=== PATIENT | male | born 1935 | race Caucasian/White ===

== ENCOUNTER → 2018-02-27 09:58 | Outpatient (CLI) | payer BC, SELFPAY ==
[2018-02-27 10:40] LABS: Add Manual Diff / Slide Review NO; Basophils Absolute Auto 100 /uL (0-100); Basophils Percent Auto 1.1 % (0-2); Eosinophils Absolute Auto 100 /uL (0-450); Eosinophils Percent Auto 2.3 % (2-4); Hemoglobin 15.3 g/dL (13.5-17.5); Lymphocytes Absolute Auto 2200 /uL (1100-4500); Mean Corpuscular HGB Conc 33.2 % (30-36); Mean Corpuscular Hemoglobin 29.7 PG (26-34); Mean Corpuscular Volume 89.4 fL (80-100); Monocytes Absolute Auto 300 /uL (0-900); Monocytes Percent Auto 5.5 % (3-14); Neutrophils Absolute Auto 3000 /uL (1500-7000); Neutrophils Percent Auto 52.1 % (50-75); Platelet Count 303 X10^3/uL (150-400); Red Blood Cell Count 5.15 X10^6/uL (4.5-5.9); Red Cell Distribution Width 13.2 % (11.6-14.8); White Blood Cell Count 5.7 X10^3/uL (4.5-11.0)
[2018-02-27 11:06] LABS: Creatinine Urine Random 89.1 mg/dL
[2018-02-27 11:12] LABS: Microalbumi Creatinin Ratio Ur 6.7 ug/mg CR (<30); Microalbumin Urine Random < 0.6 mg/dL (0-1.6)
[2018-02-27 11:15] LABS: Alanine Aminotransferase 42 IU/L (21-72); Albumin Globulin Ratio 1.5 (1.0-2.8); Alkaline Phosphatase 72 U/L (38-126); Aspartate Aminotransferase 23 IU/L (17-59); BUN Creatinine Ratio 14.4 (6-22); Bilirubin Total 0.5 mg/dL (0.2-1.3); Blood Urea Nitrogen 13 mg/dL (9-20); Calcium 9.9 mg/dL (8.4-10.2); Carbon Dioxide 28 mmol/L (22-32); Chloride 105 mmol/L (98-107); Cholesterol 186 mg/dL (140-199); Estimated Glomerular Filt Rate > 60.0 mL/min (>60); Globulin 2.7 g/dL (1.7-4.1); Glucose 99 mg/dL (80-110); HDL Cholesterol 52 mg/dL (40-60); HEMOLYSIS < 15 (0-50); LDL Cholesterol Calculated 116 mg/dL (<100); Potassium 4.6 mmol/L (3.4-5.1); Sodium 140 mmol/L (137-145); Total Protein 6.7 g/dL (6.3-8.2); Triglycerides 88 mg/dL (35-150)
[2018-02-27 11:35] LABS: Thyroid Stimulating Hormone 1.88 uIU/mL (0.47-4.68)
== END ==
PROVIDERS: PCP Family Medicine; Visit Provider Family Medicine
DX: E78.5 Hyperlipidemia, unspecified (principal); I10 Essential (primary) hypertension; Z85.46 Personal history of malignant neoplasm of prostate
CPT/HCPCS: 36415; 80053; 80061; 82043; 82570; 84443; 85025; G0103

== ENCOUNTER → 2019-10-03 11:50 | Outpatient (CLI) | payer BC, SELFPAY ==
--- NOTE | 2019-10-03 11:51 | DI.RAD.S_ITS ---
PROCEDURE: XR SHOULDER LT MIN 2V INDICATIONS: L shoulder pain x 6 days TECHNIQUE: 3 views of the shoulder were acquired. COMPARISON: [facility], CHEST 2 VIEW, 05/29/2009, 11:35. [facility], CHEST 2 VIEW, 03/30/2007, 12:48. [facility], CHEST 2 VIEW, 08/03/2006, 8:40. [facility], CHEST 2 VIEW, 07/07/2006, 11:53. [facility], RIBS UNILATERAL WITH PA CXR, 04/13/2013, 7:52. [facility], RIBS UNILATERAL WITH PA CXR, 02/20/2013, 8:03. FINDINGS: Bones: No fractures or dislocations. There is a potentially suspicious bony lesion within the medullary space of the proximal humerus. No comparison plain films allow visualization of this same area completely, but at the upper margin of the humeral metadiaphyseal junction on 2 of the prior chest plain films from 2006 and 2007 the uppermost tip of this area of chondroid matrix sclerosis can be seen. Visualized ribs appear intact. Soft tissues: No suspicious soft tissue calcifications. 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 As noted, a very small portion of the upper tip of this abnormality can be seen on 2 prior chest plain films, from 2006 and 2007. 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 The pain syndrome currently on going is important to correlate clinically, especially if trauma to the shoulder causes the most recent symptomatology. Regardless, a follow-up in 6 months is recommended by plain films, but if unusual symptomatology is associated MR scanning with contrast would be recommended at this time. The likelihood of malignancy is considered low. Dictated by: Mike Mosley M.D. on 10/03/2019 at 12:20 Approved by: Mike Mosley M.D. on 10/03/2019 at 12:26
== END ==
PROVIDERS: Family Provider Family Medicine; PCP Family Medicine; Referring Provider Family Medicine; Visit Provider Registered Nurse Diabetes Educator
DX: M25.512 Pain in left shoulder (principal); D48.7 Neoplasm of uncertain behavior of other specified sites
CPT/HCPCS: 73030

== ENCOUNTER → 2019-11-26 10:19 | Outpatient (CLI) | payer BC, SELFPAY ==
[2019-11-26 11:12] LABS: Add Manual Diff / Slide Review NO; Basophils Absolute Auto 0 /uL (0-100); Basophils Percent Auto 0.8 % (0-2); Eosinophils Absolute Auto 100 /uL (0-450); Eosinophils Percent Auto 2.1 % (2-4); Hemoglobin 14.5 g/dL (13.5-17.5); Lymphocytes Absolute Auto 1600 /uL (1100-4500); Lymphocytes Percent Auto 32.8 % (25-40); Mean Corpuscular HGB Conc 33.7 % (30-36); Mean Corpuscular Hemoglobin 30.3 PG (26-34); Mean Corpuscular Volume 89.7 fL (80-100); Monocytes Absolute Auto 300 /uL (0-900); Monocytes Percent Auto 6.5 % (3-14); Neutrophils Absolute Auto 2900 /uL (1500-7000); Neutrophils Percent Auto 57.8 % (50-75); Platelet Count 250 X10^3/uL (150-400); Red Cell Distribution Width 13.8 % (11.6-14.8)
[2019-11-26 11:25] LABS: Alanine Aminotransferase 23 IU/L (<50); Albumin Globulin Ratio 1.3 (1.0-2.8); Alkaline Phosphatase 77 U/L (38-126); Aspartate Aminotransferase 28 IU/L (17-59); BUN Creatinine Ratio 15.2 (6-22); Bilirubin Total 0.7 mg/dL (0.2-1.3); Blood Urea Nitrogen 12 mg/dL (9-20); Calcium 9.7 mg/dL (8.4-10.2); Carbon Dioxide 35 mmol/L (22-32); Chloride 105 mmol/L (98-107); Cholesterol 166 mg/dL (140-199); Estimated Glomerular Filt Rate > 60.0 mL/min (>60); Glucose 98 mg/dL (80-110); HDL Cholesterol 44 mg/dL (40-60); HEMOLYSIS < 15 (0-50); LDL Cholesterol Calculated 95 mg/dL (<100); Potassium 4.6 mmol/L (3.4-5.1); Sodium 141 mmol/L (137-145); Triglycerides 134 mg/dL (35-150)
[2019-11-26 11:54] LABS: Prostate Specific Antigen Scrn 0.364 ng/mL (0.1-4.0)
[2019-11-26 11:55] LABS: Thyroid Stimulating Hormone 1.58 uIU/mL (0.47-4.68)
== END ==
PROVIDERS: Family Provider Family Medicine; PCP Family Medicine; Referring Provider Family Medicine; Visit Provider Family Medicine
DX: C61 Malignant neoplasm of prostate (principal); E78.5 Hyperlipidemia, unspecified; I10 Essential (primary) hypertension; Z13.29 Encounter for screening for other suspected endocrine disorder
CPT/HCPCS: 36415; 80053; 80061; 84443; 85025; G0103

== ENCOUNTER → 2020-07-10 08:34 | Outpatient (CLI) | payer BC, SELFPAY ==
[2020-07-10 09:21] LABS: COVID19 -Nasal RAPID Negative (Negative)
== END ==
PROVIDERS: Family Provider Family Medicine; PCP Internal Medicine; Visit Provider Specialist
DX: Z20.822 Contact with and (suspected) exposure to COVID-19 (principal)
CPT/HCPCS: 87635; C9803

== ENCOUNTER 2020-07-14 06:25 | Day surgery (SDC) | payer BC, SELFPAY ==
[2020-07-10 08:41] VITALS: BMI 26.2
[2020-07-14 07:01] VITALS: BP 159/82; PULSE 64; RESP 15; TEMP 36.4; O2SAT 97; BMI 26.7
[2020-07-14 07:07] LABS: COVID19 -Nasal RAPID Negative (Negative)
[2020-07-14] MEDS: LACTATED RINGERS 1,000 ML 42 ML IV (07:11)
--- NOTE | 2020-07-14 07:46 | PM.PREOP ---
Pre-operative Note Interval Note History & Physical reviewed/Exam performed by Physician: Yes Changes to H&P: No
[2020-07-14] MEDS: CEFAZOLIN 1 GM VIAL 2 GM IV (08:01)
[2020-07-14] MEDS: BELLADONNA/OPIUM SUPPOSITORIES 1 EACH PR (08:12)
--- NOTE | 2020-07-14 08:15 | SUR.OPER ---
Lithotomy on padded OR bed, head on pillow, arms secured on padded arm boards at <90 degrees abduction. Legs secured in padded yellow fins stirrups.
--- NOTE | 2020-07-14 08:25 | PM.OP.1 ---
Operative Date/Time/Diagnoses Date of procedure: 07/14/20 Time of procedure: 08:25 Pre-op diagnosis: Membranous urethral stricture Post-op diagnosis: same Procedure & Clinicians Procedure: 1. Cystoscopy and dilation membranous urethral stricture. Same procedure as scheduled: Yes Indications: 1. Membranous urethral stricture. 2. Lower urinary tract symptoms. Surgeon: Simeon Mota Click Yes if Unassisted: Yes Anesthesia Type: General Operative Notes Findings: 1. Penile urethra-normal caliber. 2. Bulbar urethra-distal segment has a wide annular stricture easily negotiated with a 22 Indonesian panendoscope. 3. Membranous urethra-stenotic and somewhat hypovascular. The external sphincter appears coapted when visualized retrograde from the bulbar segment. 4. Prostate-status post TURP with mild, nonobstructing regrowth. 5. Bladder-1 to 2+ trabeculation. Normal ureteral orifices bilaterally. No visual evidence of stone, foreign body, diverticula, or tumor. Closure Type: not applicable Specimen(s): none sent Applied: catheter (Twenty Indonesian silicone Romero catheter.) Estimated Blood Loss (mL): 0 Procedure in detail: The patient was positioned in supine and administered general anesthesia. He was then repositioned semi-lithotomy the lower abdomen, groin, and genitalia were prepped and draped in sterile fashion. A 22 Indonesian panendoscope was then passed lower urinary tract with the findings as described above. A 0.35 hybrid guidewire was then advanced through the working port of the scope and advanced through the aperture of the membranous urethra under direct visualization. The panendoscope was then backloaded off the wire. Serpentine a [place] tip dilators were then utilized beginning at 12 Indonesian. The panendoscope was then front loaded on the wire and advanced proximally. The membranous segment remained somewhat fixed but the scope with gentle pressure was advanced through the segment and then proximally with the findings as described above. The sheath of the panendoscope was then used to gently fulcrum anteriorly posteriorly and laterally. Panendoscope and wire were then removed. A 20 Indonesian silicone catheter was then advanced lower urinary tract, the balloon filled to 10 cc, and the catheter was placed to gravity drainage. The patient was then repositioned in supine, awakened, and transferred recovery in stable condition. Complications: none Post-operative Condition: stable Disposition: PACU Plan for aftercare: Discharge home
[2020-07-14 08:30] VITALS: BP 124/68; PULSE 67; RESP 10; TEMP 36.4; O2SAT 95
[2020-07-14 08:35] VITALS: BP 128/89; PULSE 67; RESP 13; O2SAT 97
[2020-07-14 08:40] VITALS: BP 126/67; PULSE 67; RESP 17; O2SAT 98
[2020-07-14 09:07] VITALS: BP 134/69; PULSE 55; RESP 14; TEMP 35.7; O2SAT 99
== END 2020-07-14 09:42 | disposition home or self-care (01) ==
PROVIDERS: Family Provider Family Medicine; PCP Internal Medicine; Referring Provider Internal Medicine; Visit Provider Specialist
PROC: 0TJB8ZZ Inspection of Bladder, Via Natural or Artificial Opening Endoscopic (ICD-10-PCS; CPT 52000; principal; 2020-07-14 07:45)
DX: N35.912 Unspecified bulbous urethral stricture, male (principal); N40.1 Benign prostatic hyperplasia with lower urinary tract symptoms; N39.498 Other specified urinary incontinence; K21.9 Gastro-esophageal reflux disease without esophagitis; Z86.73 Personal history of transient ischemic attack (TIA), and cerebral infarction without residual deficits; Z20.822 Contact with and (suspected) exposure to COVID-19
CPT/HCPCS: 52281; 82962; 87635; J0690; J1100; J2405; J2704; J3010

== ENCOUNTER → 2022-10-07 16:23 | Outpatient (CLI) | payer BC, SELFPAY ==
[2022-10-07 19:35] LABS: Creatinine Urine Random 81.6 mg/dL
[2022-10-07 19:49] LABS: Microalbumin Urine Random < 0.6 mg/dL (0-1.6)
== END ==
PROVIDERS: Family Provider Family Medicine; PCP Internal Medicine; Visit Provider Internal Medicine
DX: I10 Essential (primary) hypertension (principal)
CPT/HCPCS: 82043; 82570

== ENCOUNTER → 2022-10-07 16:29 | Outpatient (CLI) | payer BC, SELFPAY ==
--- NOTE | 2022-10-07 16:31 | DI.RAD.S_ITS ---
PROCEDURE: XR KNEE LT 3V INDICATIONS: l knee pain TECHNIQUE: 3 views of the knee were acquired. COMPARISON: None. FINDINGS: Bones: No fractures or dislocations. No suspicious bony lesions. Moderate medial compartment joint space narrowing. Moderate patellofemoral joint space narrowing Soft tissues: Small joint effusion and patellar enthesophyte. IMPRESSION: Moderate osteoarthritis and small joint effusion Approved by: Bebo Rangel M.D. on 10/07/2022 at 17:16
== END ==
PROVIDERS: Family Provider Family Medicine; PCP Internal Medicine; Referring Provider Internal Medicine; Visit Provider Internal Medicine
DX: M17.12 Unilateral primary osteoarthritis, left knee (principal); M25.462 Effusion, left knee; M25.562 Pain in left knee; I10 Essential (primary) hypertension
CPT/HCPCS: 73562; 82043; 82570

== ENCOUNTER → 2023-01-13 08:21 | Outpatient (CLI) | payer BC, SELFPAY ==
[2023-01-13 09:24] LABS: Add Manual Diff / Slide Review NO; Basophils Absolute Auto 100 /uL (0-100); Eosinophils Absolute Auto 100 /uL (0-450); Eosinophils Percent Auto 1.8 % (2-4); Hemoglobin 14.1 g/dL (13.5-17.5); Lymphocytes Absolute Auto 2600 /uL (1100-4500); Lymphocytes Percent Auto 41.9 % (25-40); Mean Corpuscular HGB Conc 33.5 % (30-36); Mean Corpuscular Hemoglobin 29.5 PG (26-34); Mean Corpuscular Volume 88.3 fL (80-100); Monocytes Absolute Auto 300 /uL (0-900); Monocytes Percent Auto 5.1 % (3-14); Neutrophils Absolute Auto 3100 /uL (1500-7000); Neutrophils Percent Auto 50.2 % (50-75); Platelet Count 256 X10^3/uL (150-400); Red Blood Cell Count 4.76 X10^6/uL (4.5-5.9); White Blood Cell Count 6.3 X10^3/uL (4.5-11.0)
[2023-01-13 09:27] LABS: Hemoglobin A1C% w Est Avg Glu 5.3 % (4.0-6.0)
[2023-01-13 09:28] LABS: Albumin 3.7 g/dL (3.5-5.0); BUN Creatinine Ratio 23.1 (6-22); Blood Urea Nitrogen 18 mg/dL (9-20); Calcium 10.3 mg/dL (8.4-10.2); Carbon Dioxide 29 mmol/L (22-32); Chloride 105 mmol/L (98-107); Estimated Glomerular Filt Rate > 60 mL/min (>60); Glucose 100 mg/dL (80-110); HEMOLYSIS < 15 (0-50); Potassium 4.7 mmol/L (3.4-5.1); Sodium 138 mmol/L (137-145)
[2023-01-13 09:38] LABS: Prealbumin 22.6 mg/dL (17.6-36.0)
[2023-01-13 09:43] LABS: Vitamin D 25 Hydroxy (D3) 42.9 ng/mL (30.0-100.0)
== END ==
PROVIDERS: Family Provider Family Medicine; PCP Internal Medicine; Referring Provider Orthopaedic Surgery Adult Reconstructive Orthopaedic Surgery; Visit Provider Orthopaedic Surgery Adult Reconstructive Orthopaedic Surgery
DX: Z01.818 Encounter for other preprocedural examination (principal); R77.0 Abnormality of albumin; E55.9 Vitamin D deficiency, unspecified; Z01.812 Encounter for preprocedural laboratory examination; R73.9 Hyperglycemia, unspecified
CPT/HCPCS: 36415; 80048; 82040; 82306; 83036; 84134; 85025; 93005; 93010

== ENCOUNTER 2023-02-16 09:20 | Day surgery (SDC) | payer BC, SELFPAY ==
[2023-02-07 17:50] VITALS: BP 120/59; PULSE 62; RESP 16; TEMP 36.6; O2SAT 99
[2023-02-08 12:24] VITALS: BMI 26.3
[2023-02-16] VITALS (8 sets, daily range): BP systolic 96–150; BP diastolic 49–81; PULSE 62–71; RESP 11–18; TEMP 36.1–36.8; O2SAT 94–99; BMI 26.3
--- NOTE | 2023-02-16 06:00 | DI.RAD.S_ITS ---
PROCEDURE: XR KNEE LT 1TO2V INDICATIONS: TKA TECHNIQUE: 2 view(s) of the knee acquired. COMPARISON: None. FINDINGS: Bones: Patient is status post knee joint arthroplasty. Hardware components are in expected positions. Visualized bony structures are intact. Soft tissues: Overlying postoperative changes are noted. IMPRESSION: Expected post-operative appearance of a knee arthroplasty. Dictated by: Danyel Starks M.D. on 02/16/2023 at 14:06 Approved by: Danyel Starks M.D. on 02/16/2023 at 14:06
--- NOTE | 2023-02-16 10:12 | PM.PREOP ---
Pre-operative Note Interval Note History & Physical reviewed/Exam performed by Physician: Yes Changes to H&P: No
[2023-02-16] MEDS: ACETAMINOPHEN 325 MG TABLET 975 MG PO (10:18)
[2023-02-16] MEDS: LACTATED RINGERS 1,000 ML 42 ML IV (10:18)
[2023-02-16] MEDS: MELOXICAM 7.5 MG TABLET PO (10:18)
--- NOTE | 2023-02-16 10:22 | SUR.PREOP ---
Pt with itching after CHG wipes. No redness or rash noted. Pt states no itching with Hibiclens soap.
[2023-02-16] MEDS: CEFAZOLIN 2 GM/100 ML PREMIX 100 ML IV ×2 (11:10→18:50)
[2023-02-16] MEDS: TRANEXAMIC ACID 1,000 MG VIAL 1000 MG INJ (11:15)
--- NOTE | 2023-02-16 11:19 | SUR.OPER ---
Supine on padded OR bed, head on pillow, arms secured on padded arm boards at <90 degrees abduction, legs uncrossed, safety belt at abdomen, tape over blanket over lower legs. Operative leg free
[2023-02-16] MEDS: ROPIVACAINE/EPI/CLONIDINE/KET 50 ML SYRINGE INJ (11:31)
--- NOTE | 2023-02-16 12:31 | P.OP_ITS ---
Operative Date/Time/Diagnoses Date of procedure: 02/16/23 Pre-op diagnosis: Left knee arthritis Post-op diagnosis: same Procedure & Clinicians Procedure: Left total knee arthroplasty Same procedure as scheduled: Yes Surgeon: Bebo Spears Manager Garden: Deacon Delgadillo Anesthesia Type: Spinal, Peripheral nerve block and Local Operative Notes Prosthetic devices, grafts, tissues, transplants, or devices: Implants: Jenny Persona Medial Congruent Total Knee Arthroplasty: * Size 12 Cruciate Retaining Femoral Component * Size G Tibial Component * Size 11 Medial Congruent Polyethylene Insert * Unresurfaced Patella Procedure Summary: Varus knee which had flexion gap symmetry with 5? of external rotation and greater than 120? of flexion and full extension with an 11 mm medial congruent polyethylene Procedure in Detail: This patient was seen preoperatively and evaluated for knee pain which was refractory to numerous nonoperative treatment modalities. Their hip pain correlated with radiographic changes demonstrating significant degeneration in the knee joint. The risks and benefits of continued nonoperative management versus operative management were discussed at length and all of the patient?s questions were answered. Additional educational materials providing further details beyond our discussion in clinic were provided via a publicly available patient education video which included the incidence of medical complications associated with total knee arthroplasty, reasons for revision following total knee arthroplasty, and patient satisfaction rates following total knee arthroplasty. That video can be accessed at [email or web address] . With this understanding of the risks inherent to the procedure, the patient elected to move forward with operative management. Following preoperative optimization, the patient was scheduled for surgery. The patient was met in the preoperative holding area the day of the procedure and all questions were answered. The patient?s nares were swabbed with betadine in order to decolonize them from MRSA. Informed consent was signed and the operative limb was marked with indelible ink.? The patient was brought back to the operating room where anesthesia was induced. The patient was transferred to the operating table and all bony prominences were padded. The operative site was prepped and draped in the usual sterile fashion. A second prep stick was utilized following drape placement. The incision was marked corresponding to the medial aspect of the tibial tubercle and the p atella. Ioban was wrapped circumferentially around the knee. Prior to incision, tranexamic acid and cefazolin were administered. Templating images were displayed. A timeout procedure was performed verifying the patient?s identity, medical comorbidities, allergies, relevant medications, anesthesia type and the surgical plan. All present were in agreement. The assistance of a physician marketing assistant was required for positioning, room setup, soft tissue retraction and wound closure. Without this assistance, the procedure would have been significantly more challenging and time consuming.?? The tourniquet was inflated prior to incision. I made an anterior incision over the knee, dissected through the subcutaneous tissues and identified the lateral border of the VMO. Medial and lateral soft tissue flaps were developed. A medial parapatellar arthrotomy was performed ensuring that adequate capsular tissue would remain for closure at the conclusion of the procedure. The hip was brought into extension and the medial soft tissues were released off the joint line of the tibia. Tissue overlying the distal anterior femur was released to allow for later assessment for anterior notching but left in place. A portion of the retropatellar fat pad was excised while protecting the patellar tendon. The patella was everted. The patella was not resurfaced. Osteophytes were excised and a lateral facetectomy was performed. The patella was released from its everted position.?? I flexed the knee to 90 degrees and placed retractors to allow access to the notch. An opening reamer was used to gain access to the femoral canal and an intramedullary stanley was introduced into the canal. Diaphyseal fit was obtained in order to allow a distal femoral resection at 5 degrees relative to the anatomic axis, thereby aiming to achieve mechanical alignment of the eventual implant. A +1 resection was planned and assessed using an brandi wing. I then made the cut using a sagittal saw. This provided additional access to the femoral notch. The ACL and PCL were excised. Retractors were placed on the lateral and medial tibia. I hyperflexed the knee while externally rotating it to sublux the tibia anteriorly. I placed a PCL retractor posteriorly and used this to provide additional anterior subluxation. The remainder of the PCL root was released. An extramedullary guide was used to plan a tibial cut to allow a resection perpendicular to the anatomic and mechanical axes of the tibia, thereby aiming to achieve mechanical alignment of the eventual implant. A +4 resection off the medial tibia was planned and the tibial cutting jig was pinned in place. I evaluated the cut depth, varus-valgus alignment and slope of the planned tibial resection and deemed them satisfactory. I cut the tibia with a sagittal saw prosper fabian using retractors to protect the MCL, patellar tendon, and posterolateral structures.? The knee was repositioned in extension and the Fuzion soft tissue balancing gauge was introduced. This demonstrated that there was equal tension in the medial and lateral compartments of the knee in full extension and no additional soft tissue releases were necessary. When 60 pounds of force was applied to the Fuzion device, the extension gap opened to 10 mm. I moved the knee into 90 degrees of flexion, and the Fuzion device was recalibrated by removing a 9 mm leigha to allow assessment of the flexion gap. The Fuzion was placed perpendicular to the resected surface of the tibia and the resected surface of the distal femur. Sixty pounds of traction was applied to match the tension of the extension gap. This externally rotated the femur to 5 degrees. Pins were placed in the 10 mm holes. The measured resection guide was placed over the pins to allow sizing. Appropriate sizing was determined and a 4-in-1 block was placed. This was double checked using the Fuzion device to ensure that it would open to an equal distance as the extension gap when the same amount of force was applied. The Fuzion block was also used to assess flexion gap symmetry. An brandi wing was used to ensure there would be no anterior notching. Retractors were placed to protect the soft tissues during resection. Captured cuts were performed with a sagittal saw for the anterior and posterior femur as well as the corresponding chamfers.? Trial components were placed and the construct was assessed. Range of motion was assessed by ensuring the knee could achieve full extension and assessing maximum passive knee flexion by elevating the femur and allowing the heel to passively fall towards the buttock. Gap symmetry was assessed by stressing the medial and lateral compartments in both extension and flexion. Laxity was assessed in both extension and flexion and the polyethylene trial was adjusted with shims as necessary. Patellar tracking was assessed with knee flexion. Once satisfied with the construct, I moved forward with implant insertion. Lug holes were drilled in the femur and the tibia was prepped ensuring appropriate sizing and rotation relative to the tibial tubercle.?? The bony ends were irrigated and cement was prepared. Portions of the anterior chamfer cut were utilized as cement restrictors in the femur and tibia where intramedullar rods had been utilized. Cement was placed on the entirety of the undersurface of both the tibial and femoral components. Cement was placed onto the dry tibia and pressurized into the cancellous bone. I impacted the tibial component into place. Cement was removed. The tibia was reduced underneath the femur and placed cement onto the dry surface of the resected femur. I placed the femoral component as well as the intended polyethylene trial. Cement was removed from around the femur. I brought the knee into extension and manually pressurized the construct by pushing on the heel while the cement dried. The knee was bathed in a dilute mixture of betadine and peroxide. A mixture of Ropivacaine, Epinephrine, Clonidine and Toradol was infiltrated throughout the soft tissues into structures including the VMO, patellar tendon, quadriceps tendon, MCL and femoral periosteum. A low adductor canal block was also performed using this mixture unless one had been placed preoperatively by anesthesia. The knee was copiously irrigated with pulse lavage. Once cement had been allowed to dry the knee was again trialed. Range of motion was assessed by ensuring the knee could achieve full extension and assessing maximum passive knee flexion by elevating the femur and allowing the heel to passively fall towards the buttock. Gap symmetry was assessed by stressing the medial and lateral compartments in both extension and flexion. Laxity was assessed in both extension and flexion and the polyethylene trial was adjusted with shims as necessary. Patellar tracking was assessed with knee flexion. The tourniquet was let down and the polyethylene trial was removed. I inspected the knee inspected for excess cement and any residual bleeding. Once hemostasis was achieved I inserted the final polyethylene and ensured appropriate engagement of the dovetail locking mechanism.?? The arthrotomy was closed with absorbable interrupted suture ensuring that this extended to the top of the arthrotomy. This was backed up with running barbed suture throughout the arthrotomy. The skin was closed with 2-0 and 3-0 sutures. Surgical glue was applied and a soft dressing was placed.?The sponge, instrument and needle counts were reported as being correct at the end of the case.??No obvious complications occurred. The patient was transferred from the operating table back to a stretcher. The patient emerged from anesthesia without difficulty and was taken to the PACU in a stable condition.? Plan for aftercare: * Transfer to floor following recovery in PACU * Anticipate discharge home tomorrow morning. Patient would prefer to stay overnight * Has a history of benign prostatic hyperplasia. We will give a prophylactic dose of Flomax in the PACU * Transition from hospital gown to regular clothing immediately upon arrival on floor * Weightbearing as tolerated * Mobilization as soon as the patient has recovered from anesthesia. If physical therapists are unavailable at the time the patient is ready to ambulate, then nursing staff should help patient ambulate * Aspirin 81 twice per day for DVT prophylaxis * Multimodal pain regimen with no IV opioids ordered * Follow up at [facility] in 2 weeks * Detailed postoperative instructions available at [email or web address] Estimated Blood Loss (mL): 150 Tourniquet time (min): 50
--- NOTE | 2023-02-16 14:15 | PT.IIE ---
Current Diagnoses Unilateral primary osteoarthritis, left knee (02/16/23) Surgery Performed Operation Date: 02/16/23 10:45 Actual Procedures p Total Knee Arthroplasty(Left) - Bebo Spears MD Surgical History (Last Updated 02/08/23 @ 13:12 by Renee Linder, RN) H/O cystoscopy (2016) H/O vasectomy (1981) Hx of bilateral cataract extraction (2022) Hx of inguinal hernia repair (2015) Hx of thumb surgery (1996) Status post transurethral resection of prostate (2002) Medical History (Last Updated 02/08/23 @ 13:20 by Renee Linder, KATERIN) BPH (benign prostatic hyperplasia) Cancer of prostate (03/22/11) Erectile dysfunction History of colon polyps (03/22/11) History of COVID-19 (09/2022) History of urethral stricture Inguinal hernia without obstruction or gangrene Low back pain (03/10/15) Lower urinary tract symptoms (LUTS) Membranous urethral stricture Other and unspecified hyperlipidemia (03/22/11) SCC (squamous cell carcinoma) (2015) TIA (transient ischemic attack) (~2009) Unspecified essential hypertension (03/22/11) Physical Therapy Inpatient Evaluation/Re-Eval M1 PT/OT-IP Prior Functional Status Start: 02/16/23 15:05 Freq: NEEDED Status: Active Protocol: Document 02/16/23 14:15 AB (Rec: 02/16/23 15:26 AB [id number]) Medical Review Prior Functional Status Medical History Reviewed Yes Communication able to make needs known Mobility and Gait pt stated that he was modified independent with all mobilities and ambulation without AD but occasionally uses a SPC Social History Household Members spouse Living Arrangements House Number of Floors (Floors) 3 or More Floors Number of Stairs To Enter/Railing? 5 steps L rail t enter the house + 3 steps L rail to get to main level of the house where pt plans on staying Home Environment Standard Height Toilet,Tub/ Shower Home Equipment Front Wheel Walker,Straight Cane,Grab Bars In Shower Additional Social History Comment pt has a toilet safety frame M2 PT-IP Current Condition Start: 02/16/23 15:05 Freq: NEEDED Status: Active Protocol: Document 02/16/23 14:15 AB (Rec: 02/16/23 15:26 AB [email or web address]) Physical Therapy Current Condition Current Condition Evaluation Date 02/16/23 Treatment Diagnosis s/p L TKA; difficulty in walking Onset Date 02/16/23 M3 PT-IP Subjective Start: 02/16/23 15:05 Freq: NEEDED Status: Active Protocol: Document 02/16/23 14:15 AB (Rec: 02/16/23 15:26 AB [id number]) Subjective Physical Therapy Visit Type Type Initial Evaluation Visit Start Time 14:15 Visit Stop Time 14:55 Total Visit Minutes 40 Number of AIR BRAKES INSPECTOR Visits 0 Physical Therapy Visit Comments Patient Comments want to get up Therapy Pain Assessment Pain Present Pain Present Denied Pain M4 PT-IP Mobility and Gait Start: 02/16/23 15:05 Freq: NEEDED Status: Active Protocol: Document 02/16/23 14:15 AB (Rec: 02/16/23 15:26 [id number]) PT-Bed Mobility Assessment Supine to Sit Supine to Sit Standby Assistance Sit to Supine Sit to Supine Standby Assistance PT-Transfer Assessment Sit to and From Stand Sit to and from Stand Maximum Assistance,2 Person Assistance,Use of Upper Extremities Comments Mobility Comments pt supine in bed. stated that he is still numb on his LE but want to try to move. pt able to move BLE and MMT conducted but still has a weakness on B ankle presenting a foot drop . PLOF and home set up obtained from pt. spouse in room. pt want to at least sit up and try to stand. BP in supine: 120/75 O2 sat 97%. PROM on L knee: 0-70 deg with increase tightness/guarding towards end of flexion. post- op folder provided and reviewed contents. educated pt on HEP. pt completed supine to sit SBA . able to sit on EOB SBA. pt without c/o dizziness/ lightheadedness. pt can be impulsive. cued to slow down for safety. pt then stated that his buttocks are still numb but want to try to stand. attempted standing x 2 but pt unable despite 2 PA. pt still does not have control of BLE to be able to stand. pt sat back on bed. completed sit to supine SBA. positioned pt in bed. able to roll L<>R SBA with use of rail for positioning. call light and table placed within reach. ice pack provided. caregiver training set up tomorrow and coming in at ~ 9am for training. Gait Assessment Comments Gait Comments unable at this time PT-Balance Assessment Sitting Balance and Reactions Static Sitting Balance Ability Good Dynamic Sitting Balance Ability Good Standing Balance and Reactions Device Used unable at this time M5 PT-IP Objective Assessments Start: 02/16/23 15:05 Freq: NEEDED Status: Active Protocol: Document 02/16/23 14:15 AB (Rec: 02/16/23 15:26 AB [id number]) Orientation Orientation/Cognition Level of Alertness Alert Orientation Name,Age,Birthday,Year,Place, Situation Language Function Ability No Deficits Noted Safety Awareness Decreased Safety Awareness Gross Range of Motion Lower Extremity ROM Assessment Within Functional Limits Strength Lower Extremity Strength Assessment Bilaterally Impaired Hip B hips: 4-/5 Knee R: 4/5 L: 4-/5 Ankle B: 3-/5 Sensation Assessment Sensation Sensation Description Numbness Comments Sensation Comments still has slight numbness on BLE but stated more numbness on buttocks area M6 PT-IP Treatment Start: 02/16/23 15:05 Freq: NEEDED Status: Active Protocol: Document 02/16/23 14:15 AB (Rec: 02/16/23 15:26 AB [email or web address]) Physical Therapy Treatment Exercises Exercises Heel Slides Education Education Provided Precautions,Weight Bearing Status,Post-Op Packet,Safety M7 PT-IP Assessment and Plan Start: 02/16/23 15:05 Freq: NEEDED Status: Active Protocol: Document 02/16/23 14:15 AB (Rec: 02/16/23 15:26 AB [email or web address]) PT Summary Assessment and Plan Potential Rehabilitation Potential Fair Status of Condition at Evaluation Evolving Summary Impairments Pain,ROM,Strength,Balance, Coordination,Sensation,Tone, Cognition,Bed Mobility, Transfers,Gait,Activity Tolerance Assessment Summary pt is an 87 y/o M s/p L TKA POD 0 and is WBAT on LLE. pt able to completed bed mobility SBA but unable to stand despite max A x 2. pt still c /o numbness on buttocks and only slight numbness on BLE and able to move BLE during MMT. will continue to assess pt's mobility. caregiver training set up for tomorrow at 9 am with spouse. pt plans to go home and spouse to assist and pt is hoping to go home tomorrow. nurse assisted PT with pt with standing and is aware of pt's level of assistance at this time and numbness with decrease motor control affecting mobility at this time. pt want to try to stand again later. nurse aware and will attempt to stand pt later. Goals Bed Mobility Goal Independent Transfer Goal Standby Assistance,Front Wheeled Walker Gait Goal Standby Assistance,Front Wheel Walker Gait Distance 200 Other Goals improve transfers and ambulation using LRAD 300 ft SBA up/down 5+3 steps L rail ascending SBA Days to Meet Goals 5 Frequency of Treatment Frequency Of Treatment Twice a Day Treatment Plan Physical Therapy Treatment Plan Bed Mobility Training,Transfer Training,Gait Training, Therapeutic Exercise,Balance Retraining,Post Op Education, Discharge Planning,Hot or Cold Pack,Neuromuscular Re-ed, Coordination Retraining,Manual Therapy Weight Bearing Status Weight Bearing Status Weight Bear as Tolerated Allowed Weight Bearing Amount (enter % LLE WBAT or #) (%) Recommendations To Nursing Amount of Assist Needed PT/OT Assist Only Discharge Recommendations PT Discharge Recommendations Home with Assistance Transportation Needs at Discharge Private Vehicle
[2023-02-16] MEDS: IBUPROFEN 400 MG TABLET PO ×3 (14:44→21:47)
[2023-02-16] MEDS: ACETAMINOPHEN 325 MG TABLET 650 MG PO ×2 (14:44→21:46)
[2023-02-16] MEDS: LACTATED RINGERS 1,000 ML 100 ML IV (14:45)
--- NOTE | 2023-02-16 15:05 | PC.NURSE ---
Pt arrived from PACU at 1314, A&Ox4, no c/o pain, unable to wiggle toes or move legs. VSS on RA, lungs CTA, bowel sounds hypoactive. Hugo wrap to L knee c/d/i, pedal pulses +2 bilaterally, cap refill <2 seconds. Patient oriented to room and call light. Bed in low position, SCDs on, call light within reach.
--- NOTE | 2023-02-16 17:43 | P.PN_ITS ---
Subjective Subjective Interval history: Patient seen postoperatively. He was ambulating around his room with a walker when I saw him. He momentarily forgot to use his walker and was able to take a few steps without it. He is performing high knees in order to demonstrate his range of motion in his knee. He has not taken any oxycodone since surgery. He has range of motion currently from 0-90 degrees. He has benign prostatic hyperplasia but has urinated with an output of over 600 mL. I asked him if he would like to discharge home tonight and he says he would prefer to remain in the hospital overnight and discharge in the morning in order to limit the care requirements on his spouse for this 1st evening after surgery. Exam Vital Signs (past 8 hours): - 02/16/23 09:57 02/16/23 12:47 02/16/23 12:54 Temperature 97.5 F L 98.2 F 98.2 F Pulse Rate 71 67 67 Respiratory Rate 16 11 L 12 Blood Pressure 150/81 H 103/49 L 96/56 L Pulse Oximetry 97 94 94 Oxygen Delivery Method Room Air Room Air Room Air 02/16/23 12:58 02/16/23 13:04 02/16/23 13:26 Temperature 98.0 F 97.0 F L Pulse Rate 62 64 62 Respiratory Rate 12 18 18 Blood Pressure 97/60 99/62 120/50 L Pulse Oximetry 95 95 99 Oxygen Delivery Method Room Air Room Air 02/16/23 14:00 Temperature Pulse Rate Respiratory Rate Blood Pressure Pulse Oximetry Oxygen Delivery Method Room Air Oxygen Delivery Method Room Air [facility] Medical History (Updated 02/08/23 @ 13:20 by Renee Linder RN) History of COVID-19 (09/2022) BPH (benign prostatic hyperplasia) SCC (squamous cell carcinoma) (2015) Membranous urethral stricture Erectile dysfunction History of urethral stricture Lower urinary tract symptoms (LUTS) TIA (transient ischemic attack) (~2009) Cancer of prostate (03/22/11) Unspecified essential hypertension (03/22/11) History of colon polyps (03/22/11) Other and unspecified hyperlipidemia (03/22/11) Low back pain (03/10/15) Inguinal hernia without obstruction or gangrene Surgical History (Updated 02/08/23 @ 13:12 by Renee Linder RN) Hx of bilateral cataract extraction (2022) Hx of thumb surgery (1996) Hx of inguinal hernia repair (2015) H/O vasectomy (1981) H/O cystoscopy (2016) Status post transurethral resection of prostate (2002) Family History Father BPH (benign prostatic hyperplasia) Mother Cancer Social History marital status: number of children: 3 household members: spouse Smoking Status: Never smoker alcohol intake: current caffeine: Yes
[2023-02-16] MEDS: OXYCODONE IR 5 MG TABLET PO ×2 (17:52→21:48)
[2023-02-16] MEDS: DOCUSATE 100 MG CAPSULE PO (21:47)
[2023-02-16] MEDS: ASPIRIN EC 81 MG TABLET PO (21:47)
[2023-02-17 00:08] VITALS: BP 122/61; PULSE 75; RESP 18; TEMP 36.2; O2SAT 95
[2023-02-17] MEDS: IBUPROFEN 400 MG TABLET PO ×4 (01:10→13:00)
[2023-02-17] MEDS: LACTATED RINGERS 1,000 ML 100 ML IV (01:11)
[2023-02-17] MEDS: ACETAMINOPHEN 325 MG TABLET 650 MG PO ×3 (03:00→12:59)
[2023-02-17] MEDS: CEFAZOLIN 2 GM/100 ML PREMIX 100 ML IV (03:01)
[2023-02-17] MEDS: OXYCODONE IR 5 MG TABLET PO ×3 (03:02→11:59)
[2023-02-17 06:00] VITALS: BP 115/56; PULSE 77; RESP 15; TEMP 36.1; O2SAT 96
[2023-02-17 06:15] LABS: Hematocrit 36.2 % (41-53); Hemoglobin 12.3 g/dL (13.5-17.5)
[2023-02-17] MEDS: ASCORBIC ACID 500 MG TABLET PO (08:09)
[2023-02-17] MEDS: DOCUSATE 100 MG CAPSULE PO (08:09)
[2023-02-17] MEDS: ASPIRIN EC 81 MG TABLET PO (08:10)
[2023-02-17] MEDS: CHOLECALCIFEROL (VITAMIN D3) 400 UNIT TABLET PO (08:11)
[2023-02-17] MEDS: MULTIVITAMIN 1 TABLET 1 TAB PO (08:12)
[2023-02-17] MEDS: PSYLLIUM HUSK 1 PACKET PO (08:12)
--- NOTE | 2023-02-17 08:28 | PM.DS.1 ---
History of Present Illness History of Present Illness Date Patient Seen: 02/17/23 Time Patient Seen: 08:29 Chief complaint: OPB Narrative: Operative Date/Time/Diagnoses Date of procedure: 02/16/23 Pre-op diagnosis: Left knee arthritis Post-op diagnosis: same Procedure & Clinicians Procedure: Left total knee arthroplasty Same procedure as scheduled: Yes Surgeon: Elena Ring Pole Frame Construction Worker: Deacon Delgadillo Anesthesia Type: Spinal, Peripheral nerve block and Local Operative Notes Prosthetic devices, grafts, tissues, transplants, or devices: Implants: Jenny Persona Medial Congruent Total Knee Arthroplasty: Size 12 Cruciate Retaining Femoral Component Size G Tibial Component Size 11 Medial Congruent Polyethylene Insert Unresurfaced Patella Discharge Providers Provider Discharge Date: 02/17/23 Primary care physician: Jeffery Hermosillo MD Consults: 02/16/23 06:00 Consult to Anesthesiology Routine Comment: Consulting Provider: Anesthesiologist Reason for consultation: Regional block for post operative pain control 02/16/23 13:26 Consult to Discharge Planning Routine Comment: Consult to Physical Therapy Evaluate & Treat Comment: Physician Instructions: postop TKA protocol Discharge provider: Brenda Sifuentes PA-C Summary Hospital Course Discharge Diagnosis: Left knee osteoarthritis, s/p left total knee arthroplasty Hospital Course: Mr Gibbs's hospital course was unremarkable. On the morning of POD# 1, he was regretting the fact that he had refused pain medication earlier but was otherwise doing well. He was eating and voiding without difficulty. He had been evaluated by PT and they felt he was appropriate for discharge to home. He was also seen by Dr Ring on the morning of POD #1. He wanted to go home once his pain was better controlled with oral oxycodone. Exam Vital Signs (past 8 hours): - 02/17/23 06:00 Temperature 97.0 F L Pulse Rate 77 Respiratory Rate 15 Blood Pressure 115/56 L Pulse Oximetry 96 Oxygen Flow Rate 0 Oxygen Delivery Method Room Air Oxygen Flow Rate 0 Narrative Exam Narrative: 5/5 strength in hip flexors, quadriceps, hamstrings, DF, PF, EHL on left. Sensation to light touch intact throughout LLE. Calf soft, compressible, nontender. JOSIAH wrap over Aquacel CDI. Objective Labs 02/17/23 05:35 Labs: Laboratory Results - last 24 hr 02/17/23 05:35 Hgb 12.3 L Hct 36.2 L PFSH Medical History (Updated 02/08/23 @ 13:20 by Renee Linder RN) History of COVID-19 (09/2022) BPH (benign prostatic hyperplasia) SCC (squamous cell carcinoma) (2015) Membranous urethral stricture Erectile dysfunction History of urethral stricture Lower urinary tract symptoms (LUTS) TIA (transient ischemic attack) (~2009) Cancer of prostate (03/22/11) Unspecified essential hypertension (03/22/11) History of colon polyps (03/22/11) Other and unspecified hyperlipidemia (03/22/11) Low back pain (03/10/15) Inguinal hernia without obstruction or gangrene Surgical History (Updated 02/08/23 @ 13:12 by Renee Linder RN) Hx of bilateral cataract extraction (2022) Hx of thumb surgery (1996) Hx of inguinal hernia repair (2015) H/O vasectomy (1981) H/O cystoscopy (2016) Status post transurethral resection of prostate (2002) Family History Father BPH (benign prostatic hyperplasia) Mother Cancer Social History marital status: number of children: 3 household members: spouse Smoking Status: Never smoker alcohol intake: current caffeine: Yes Discharge Assessment & Plan Assessment and Plan Assessment: Left knee osteoarthritis, s/p left total knee arthroplasty Plan of Treatment: Discharge home, pt has postop rxs already, outpt PT, f/u in office in 2 weeks as tolerated. Discharge Plan Discharge Plan Patient Disposition: Home Provider Discharge Comment: Please watch the video at the link below: [email or web address] Or [employer] elena ring md knee replacement 3' Discharge orders & Medications Discharge Orders: Discharge (Order); Ordered 02/17/23 Ordered By: Brenda Sifuentes Prescriptions: Continued aspirin 325 mg tablet 325 mg PO DAILY multivitamin Tablet 1 tab PO DAILY Qty: 90 0RF ascorbate calcium (vitamin C) 500 mg tablet 500 mg PO DAILY Qty: 90 0RF Psyllium Husk 2 tsp PO DAILY Qty: 1 0RF ibuprofen 200 mg Tablet 400 mg PO DAILY PRN (Reason: Pain) calcium carbonate-vitamin D3 [Calcium 500 + D] 500 mg-10 mcg (400 unit) Tablet 1 tab PO DAILY Rx Instructions: 400mg of Calcium, 12.5 mcg of Vit D Follow up/Referrals: Jeffery Hermosillo MD [Primary Care Provider] - Elena Ring MD [Physician] - As previously scheduled (Follow up w/ Deacon Delgadillo PA-C, on 03/02/2023 @ 9:50 am at [facility].) Diet/Activity/Treatments Diet: Diet as Tolerated Activity: Walk frequently! Cold/Heat Therapy: Ice to knee as needed for pain. Skin/Wound/Dressing Care Report to your healthcare provider any signs of infection, such as:: chills, fever, night sweats, unusual drainage and unusual redness Dressing: May remove JOSIAH wrap on 02/19/2023 and shower. Leave bandage in place until follow up in office. No bathing or otherwise soaking incision. Call the office if the dressing becomes saturated inside. Visit Report/Discharge Packet Instructions: DI for Knee Replacement, DI for Prescription Opioid Use Stand Alone Forms: Patient Portal/API, Surgery Discharge Discharge Data Primary Care Provider: Jeffery Hermosillo Attending Provider: Elena Ring
--- NOTE | 2023-02-17 09:00 | PT.IPTN ---
Current Diagnoses Unilateral primary osteoarthritis, left knee (02/16/23) Surgery Performed Operation Date: 02/16/23 10:45 Actual Procedures p Total Knee Arthroplasty(Left) - Bebo Spears MD Physical Therapy Treatment Note M2 PT-IP Current Condition Start: 02/16/23 15:05 Freq: NEEDED Status: Active Protocol: Document 02/16/23 14:15 AB (Rec: 02/16/23 15:26 AB [email or web address]) Physical Therapy Current Condition Current Condition Evaluation Date 02/16/23 Treatment Diagnosis s/p L TKA; difficulty in walking Onset Date 02/16/23 M3 PT-IP Subjective Start: 02/16/23 15:05 Freq: NEEDED Status: Active Protocol: Document 02/17/23 09:42 TS (Rec: 02/17/23 10:04 TS [id number]) Subjective Physical Therapy Visit Type Type Treatment Note Visit Start Time 09:00 Visit Stop Time 09:39 Total Visit Minutes 39 Number of RETAIL MARKETING SPECIALIST Visits 1 Physical Therapy Visit Comments Patient Comments Pt found resting in bed, reports just having a pain pill and feels like it is working, pain is 4/10. Pt is agreeable to PT. M4 PT-IP Mobility and Gait Start: 02/16/23 15:05 Freq: NEEDED Status: Active Protocol: Document 02/17/23 09:42 TS (Rec: 02/17/23 10:04 TS [id number]) PT-Bed Mobility Assessment Supine to Sit Supine to Sit Standby Assistance Scooting Scooting to Edge of Bed Standby Assistance PT-Transfer Assessment Sit to and From Stand Sit to and from Stand Contact Guard Assistance,1 Person Assistance,Use of Upper Extremities Equipment Transfer Assistive Device Gait Belt,Front Wheeled Walker Orthotic/Prosthetic Devices or Brace: No Comments Mobility Comments Supine to sit with HOB elevated SBA, pt demonstrates good quad act to lift LLE to EOB. Pt sat EOB with good balance and BUE support. Spouse was instructed in and performed donning of gait belt . Spouse performed sit to stand with pt CGA and with FWW , pt required cues for pushing off from bed surface with BUE . Pt ambulated in hallway ~200 ' SBA with step to gait, paces quickens with increased time with gait. He performed steps x6 with single rail and handheld assist from spouse. Spouse and pt were educated on proper sequencing of stairs and setup. Pt ambulated back to room, performed stand to sit SBA with cues for slow eccentric control and LLE out in front. Pt and spouse were educated in instensity and frequency of post-op ex. Pt was left in chair, all needs met, RN notified. Gait Assessment Gait Gait Assistance Required: Standby Assistance Distance (Feet) 200 Able to Maintain Weight Bearing Status Yes During Gait Assistive Devices Assistive Device Gait Belt,Front Wheeled Walker Orthotic/Prosthetic Devices or Brace: No Gait Deviations General Gait Pattern Antalgic,Decreased Stride Length,Decreased Feet Clearance,Step-to Gait Factors Limiting Gait Function Factors Limiting Gait Function Decreased Strength,Poor Balance Comments Gait Comments See mobility comments Stair Climbing Assessment Evaluation Level of Assist On Stairs Contact Guard Assistance,1 Person Assistance Devices Stair Climbing Assistive Devices Left Railing Technique/Endurance Stair Climbing Direction Ascend and Descend Stair Climbing Technique Step to Step Number of Steps Climbed 6 Comments Stair Climbing Comments See mobility comments PT-Balance Assessment Sitting Balance and Reactions Static Sitting Balance Ability Good Dynamic Sitting Balance Ability Good Standing Balance and Reactions Static Standing Balance Ability Good Dynamic Standing Balance Ability Good M5 PT-IP Objective Assessments Start: 02/16/23 15:05 Freq: NEEDED Status: Active Protocol: Document 02/16/23 14:15 AB (Rec: 02/16/23 15:26 AB [id number]) Orientation Orientation/Cognition Level of Alertness Alert Orientation Name,Age,Birthday,Year,Place, Situation Language Function Ability No Deficits Noted Safety Awareness Decreased Safety Awareness Gross Range of Motion Lower Extremity ROM Assessment Within Functional Limits Strength Lower Extremity Strength Assessment Bilaterally Impaired Hip B hips: 4-/5 Knee R: 4/5 L: 4-/5 Ankle B: 3-/5 Sensation Assessment Sensation Sensation Description Numbness Comments Sensation Comments still has slight numbness on BLE but stated more numbness on buttocks area M6 PT-IP Treatment Start: 02/16/23 15:05 Freq: NEEDED Status: Active Protocol: Document 02/17/23 09:42 TS (Rec: 02/17/23 10:04 TS [id number]) Physical Therapy Treatment Education Education Provided Precautions,Weight Bearing Status,Post-Op Packet,Safety M7 PT-IP Assessment and Plan Start: 02/16/23 15:05 Freq: NEEDED Status: Active Protocol: Document 02/17/23 09:42 TS (Rec: 02/17/23 10:04 TS [id number]) PT Summary Assessment and Plan Potential Rehabilitation Potential Good Summary Impairments Pain,ROM,Strength,Balance, Coordination,Sensation,Tone, Cognition,Bed Mobility, Transfers,Gait,Activity Tolerance Progress Towards Goals Progressing Toward Goals Assessment Summary Nohemy is making good progress with his mobility. He is SBA for assist for bed mobility and demonstrates good quad act to lift LLE to EOB. He performed sit to stand with FWW CGA with good standing balance. He progressed his ambulation to ~200'SBA with FWW, had no buckling or LOB. He performed stairs x6 with assist from spouse. Spouse was educated on and performed donning of gait belt, STS sequencing, gait and stair training. PT is recommending pt return home with assist and outpatient PT. Goals Bed Mobility Goal Independent Transfer Goal Standby Assistance,Front Wheeled Walker Gait Goal Standby Assistance,Front Wheel Walker Gait Distance 200 Other Goals improve transfers and ambulation using LRAD 300 ft SBA up/down 5+3 steps L rail ascending SBA Days to Meet Goals 5 Frequency of Treatment Frequency Of Treatment Twice a Day Treatment Plan Physical Therapy Treatment Plan Bed Mobility Training,Transfer Training,Gait Training, Therapeutic Exercise,Balance Retraining,Post Op Education, Discharge Planning,Hot or Cold Pack,Neuromuscular Re-ed, Coordination Retraining,Manual Therapy Weight Bearing Status Weight Bearing Status Weight Bear as Tolerated Allowed Weight Bearing Amount (enter % LLE WBAT or #) (%) Recommendations To Nursing Amount of Assist Needed Standby Assistance Discharge Recommendations PT Discharge Recommendations Home with Assistance Transportation Needs at Discharge Private Vehicle
--- NOTE | 2023-02-17 13:09 | PC.NURSE ---
Pt discharged today. VSS. Afebrile, A&Ox4. Pain well controlled with Tylenol, Motrin, and oxycodone 5 mg. Pt verbalized understanding of D/C instructions and post op incision care, when to follow up with surgeon, when to follow up with PCP as needed, when to remove JOSIAH bandage. Pt taken to car with TEST CONDUCTOR in a wheelchair. Pt took all of his belongings including cell phone, glasses, FWW, clothing, and shoes. All questions answered. Pt given D/C instruction packet.
--- NOTE | 2023-02-17 13:58 | CM.DANOTE ---
Discharge Planning/Care Management Advanced directive, confirm from FAMILY Start: 02/16/23 16:47 Freq: Q24H Status: Discharge Protocol: Document 02/16/23 16:47 AKP (Rec: 02/16/23 16:48 AKP [id number]) Advance Directive, confirm on record Time 16:47 Person contacted in chart Copy received Yes Advanced directive available on record Yes CM Discharge Assessment Start: 02/17/23 13:56 Freq: Status: Active Protocol: Document 02/17/23 13:56 DARCY (Rec: 02/17/23 13:58 DARCY [id number]) Discharge Planning Assessment Assigned Fighter Pilot BA Sanchez DPOA/Assigned Designee Name Pippa Gibbs, spouse Contact Information [phone] Advance Directives? Yes Advance Directives on File No History Provided By Patient,Significant Other Prior Living Arrangements House Household Members spouse Type of transporation used prior to Drives own vehicle admit Independent with ADL's Yes Is patient alert and oriented? Yes Patient/Family Preference OP PT Therapy Barriers to Discharge No Comment Reviewed chart, pt discussed in multidisciplinary rounds this morning. Therapy has cleared pt for return home w/ family to assist and pt has planned for home, DC order from Ortho has already been initiated this morning. Met w/ patient and spouse to review discharge plan. Patient eager to return home, denies needs from this MAJOR LEAGUE BASEBALL UMPIRE Discharge Plan Home Transportation Arrangement Spouse Referrals Initiated None needed
== END 2023-02-17 13:06 | disposition home or self-care (01) ==
LOC: OR 09:22 → AC 09:22
PROVIDERS: Family Provider Family Medicine; PCP Internal Medicine; Referring Provider Orthopaedic Surgery Adult Reconstructive Orthopaedic Surgery; Visit Provider Orthopaedic Surgery Adult Reconstructive Orthopaedic Surgery
PROC: 0SRD0JZ Replacement of Left Knee Joint with Synthetic Substitute, Open Approach (ICD-10-PCS; CPT 27447; principal; 2023-02-16 10:45)
DX: M17.12 Unilateral primary osteoarthritis, left knee (principal); M21.162 Varus deformity, not elsewhere classified, left knee; M25.762 Osteophyte, left knee
CPT/HCPCS: 27447; 73560; 85014; 85018; 97116; 97163; 97530; C1776; J0690; J2250; J2704

== ENCOUNTER → 2023-10-25 09:23 | Outpatient (CLI) | payer BC, SELFPAY ==
[2023-02-16 16:29] VITALS: BMI 26.3
--- NOTE | 2023-10-25 09:44 | EKG_ITS ---
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
[2023-10-25 10:11] LABS: Add Manual Diff / Slide Review NO; Basophils Absolute Auto 100 /uL (0-100); Eosinophils Absolute Auto 100 /uL (0-450); Eosinophils Percent Auto 1.3 % (2-4); Hematocrit 42.9 % (41-53); Hemoglobin 14.5 g/dL (13.5-17.5); Lymphocytes Absolute Auto 1900 /uL (1100-4500); Lymphocytes Percent Auto 32.7 % (25-40); Mean Corpuscular HGB Conc 33.8 % (30-36); Mean Corpuscular Hemoglobin 30.3 PG (26-34); Mean Corpuscular Volume 89.4 fL (80-100); Monocytes Absolute Auto 400 /uL (0-900); Monocytes Percent Auto 6.1 % (3-14); Neutrophils Absolute Auto 3500 /uL (1500-7000); Neutrophils Percent Auto 58.9 % (50-75); Platelet Count 262 X10^3/uL (150-400); Red Cell Distribution Width 13.8 % (11.6-14.8); White Blood Cell Count 5.9 X10^3/uL (4.5-11.0)
[2023-10-25 10:28] LABS: Albumin 3.8 g/dL (3.5-5.0); BUN Creatinine Ratio 19.8 (6-22); Blood Urea Nitrogen 16 mg/dL (9-20); Calcium 10.1 mg/dL (8.4-10.2); Carbon Dioxide 28 mmol/L (22-32); Chloride 105 mmol/L (98-107); Estimated Glomerular Filt Rate > 60 mL/min (>60); Glucose 99 mg/dL (80-110); HEMOLYSIS < 15 (0-50); Potassium 4.7 mmol/L (3.4-5.1); Sodium 136 mmol/L (137-145)
[2023-10-25 10:29] LABS: Hemoglobin A1C% w Est Avg Glu 5.1 % (4.0-6.0)
[2023-10-25 10:35] LABS: Prealbumin 20.8 mg/dL (17.6-36.0)
[2023-10-25 10:51] LABS: Vitamin D 25 Hydroxy (D3) 41.2 ng/mL (30.0-100.0)
== END ==
LOC: LAB 09:24
PROVIDERS: Family Provider Family Medicine; PCP Internal Medicine; Referring Provider Orthopaedic Surgery Adult Reconstructive Orthopaedic Surgery; Visit Provider Orthopaedic Surgery Adult Reconstructive Orthopaedic Surgery
DX: Z01.818 Encounter for other preprocedural examination (principal); R77.0 Abnormality of albumin; Z01.812 Encounter for preprocedural laboratory examination; E55.9 Vitamin D deficiency, unspecified; R73.9 Hyperglycemia, unspecified
CPT/HCPCS: 36415; 80048; 82040; 82306; 83036; 84134; 85025; 93005

== ENCOUNTER 2023-12-22 14:11 | Emergency (ER) | payer BC, SELFPAY ==
[2023-02-16 16:29] VITALS: BMI 26.3
[2023-12-22 14:15] VITALS: BP 169/79; PULSE 69; RESP 18; TEMP 36.4; O2SAT 98; BMI 26.2
--- NOTE | 2023-12-22 14:21 | DI.RAD.S_ITS ---
PROCEDURE: XR CHEST 1V INDICATIONS: chest pain TECHNIQUE: One view of the chest was acquired. COMPARISON: None. FINDINGS: Surgical changes and devices: None. Lungs and pleura: Lungs are clear. No pleural effusions or pneumothorax. Mediastinum: Mediastinal contours appear normal. Heart size is normal. Bones and chest wall: No suspicious bony lesions. Overlying soft tissues appear unremarkable. IMPRESSION: No acute cardiopulmonary pathology. Dictated by: Brice De M.D. on 12/22/2023 at 16:45 Approved by: Brice De M.D. on 12/22/2023 at 16:46
--- NOTE | 2023-12-22 14:34 | EKG_ITS ---
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
[2023-12-22 14:43] LABS: Add Manual Diff / Slide Review YES; Hematocrit 42.6 % (41-53); Hemoglobin 14.3 g/dL (13.5-17.5); Mean Corpuscular HGB Conc 33.6 % (30-36); Mean Corpuscular Hemoglobin 30.3 PG (26-34); Mean Corpuscular Volume 90.2 fL (80-100); Platelet Count 276 X10^3/uL (150-400); Red Blood Cell Count 4.72 X10^6/uL (4.5-5.9); Red Cell Distribution Width 13.3 % (11.6-14.8); White Blood Cell Count 8.7 X10^3/uL (4.5-11.0)
[2023-12-22 14:59] LABS: Alanine Aminotransferase 26 IU/L (<50); Albumin 4.1 g/dL (3.5-5.0); Albumin Globulin Ratio 1.5 (1.0-2.8); Alkaline Phosphatase 77 U/L (38-126); Aspartate Aminotransferase 36 IU/L (17-59); Bilirubin Total 0.5 mg/dL (0.2-1.3); Blood Urea Nitrogen 16 mg/dL (9-20); Calcium 9.9 mg/dL (8.4-10.2); Carbon Dioxide 28 mmol/L (22-32); Chloride 105 mmol/L (98-107); Creatine Kinase 65 U/L (55-170); Estimated Glomerular Filt Rate > 60 mL/min (>60); Globulin 2.8 g/dL (1.7-4.1); Glucose 87 mg/dL (80-110); HEMOLYSIS 17 (0-50); Lipase 110 U/L (23-300); Magnesium 2.3 mg/dL (1.6-2.3); Potassium 4.7 mmol/L (3.4-5.1); Sodium 135 mmol/L (137-145); Total Protein 6.9 g/dL (6.3-8.2)
[2023-12-22 15:05] LABS: Neutrophils Absolute Manual 5307 /uL (3000-5900); Total Cells Counted 100
[2023-12-22 15:06] LABS: RBC Morphology Normal Morphology
[2023-12-22 15:10] LABS: NT-proBNP (BNP-Adult 18+) 132 pg/mL (<450); Troponin I < 0.012 ng/mL (0.01-0.034)
--- NOTE | 2023-12-22 16:14 | ED_ITS ---
HPI - Chest Pain General Chief Complaint: Chest Pain Stated Complaint: tachycardia sent by provider Time Seen by Provider: 12/22/23 16:02 Source: patient Mode of arrival: Ambulatory Limitations: no limitations History of Present Illness HPI narrative: Patient is an 88-year-old male who was at his orthopedic doctor's office this morning for a pre operative visit. He was planning on having a knee replacement beginning of next month. He states that during that time the PA that he was seeing took his pulse. He was noted to have a heart rate in the 120s. He was having some chest tightness at the time. He currently is asymptomatic. He was not feeling palpitations. He stated that maybe over the past couple weeks he was felt like that 1 or 2 times. He actually stated that he did some exercise this morning and did not have any symptoms with it. He was told to come to the emergency department for further evaluation. Related Data Home Medications Medication Instructions Recorded Confirmed aspirin 325 mg tablet 325 mg PO DAILY 12/04/19 02/16/23 calcium carbonate 500 mg-vitamin 1 tab PO DAILY 02/08/23 02/16/23 D3 10 mcg (400 unit) tablet (Calcium 500 + D) ibuprofen 200 mg tablet 400 mg PO DAILY PRN Pain 02/08/23 02/08/23 Previous Rx's Medication Instructions Recorded Psyllium Husk 2 tsp PO DAILY #1 ea 02/28/20 ascorbate calcium (vitamin C) 500 500 mg PO DAILY #90 tabs 02/28/20 mg tablet multivitamin 1 tab PO DAILY #90 tabs 02/28/20 Allergies Allergy/AdvReac Type Severity Reaction Status Date / Time latex Allergy Mild FACIAL Verified 02/16/23 09:54 FLUSHING Review of Systems Review of Systems ROS Unobtainable: All systems reviewed & are unremarkable except as noted in HPI and below Patient History Medical History History of COVID-19 (09/2022) BPH (benign prostatic hyperplasia) SCC (squamous cell carcinoma) (2015) Membranous urethral stricture Erectile dysfunction History of urethral stricture Lower urinary tract symptoms (LUTS) TIA (transient ischemic attack) (~2009) Cancer of prostate (03/22/11) Unspecified essential hypertension (03/22/11) History of colon polyps (03/22/11) Other and unspecified hyperlipidemia (03/22/11) Low back pain (03/10/15) Inguinal hernia without obstruction or gangrene Surgical History (Updated 02/08/23 @ 13:12 by Renee Linder RN) Hx of bilateral cataract extraction (2022) Hx of thumb surgery (1996) Hx of inguinal hernia repair (2015) H/O vasectomy (1981) H/O cystoscopy (2016) Status post transurethral resection of prostate (2002) Family History Father BPH (benign prostatic hyperplasia) Mother Cancer Social History marital status: number of children: 3 household members: spouse Smoking Status: Never smoker alcohol intake: current caffeine: Yes Smoking Status: Never smoker alcohol intake frequency: a few times a month Substance Use Type: does not use Exam Initial Vital Signs Initial Vital Signs: Vital Signs Temperature 97.5 F L 12/22/23 14:15 Pulse Rate 69 12/22/23 14:15 Respiratory Rate 18 12/22/23 14:15 Blood Pressure 169/79 H 12/22/23 14:15 Pulse Oximetry 98 12/22/23 14:15 Oxygen Delivery Method Room Air 12/22/23 14:15 Const General: cooperative, comfortable and No ill appearing HENDC Head: normal to inspection and normocephalic Resp Effort & Inspection: normal respiratory effort Auscultation: clear to auscultation bilaterally Cardio Rate: regular rate Rhythm: regular rhythm Neuro General: patient alert, patient awake and moves all extremities Extrem General: capillary refill normal Course Orders Ordered: ED Orders 12/22/23 14:21 XR chest 1V Stat EKG-12 Lead Stat 12/22/23 14:31 Complete Blood Count AUTO DIFF Stat Comprehensive Metabolic Panel Stat Lipase Stat Magnesium Stat NT-proBNP (BNP-Adult 18+) Stat Troponin & CK Cardiac Panel Stat Vital Signs Vital signs: Vital Signs - 8 hr 12/22/23 14:15 Temperature 97.5 F L Pulse Rate 69 Respiratory Rate 18 Blood Pressure 169/79 H Pulse Oximetry 98 Oxygen Delivery Method Room Air MDM - Chest Pain Lab Data Attestation: I reviewed the patient's lab results. 12/22/23 14:31 12/22/23 14:31 Labs: Lab Results 11/14/24 Range/Units 14:31 WBC 8.7 (4.5-11.0) X10^3/uL RBC 4.72 (4.5-5.9) X10^6/uL Hgb 14.3 (13.5-17.5) g/dL Hct 42.6 (41-53) % MCV 90.2 (80-100) fL MCH 30.3 (26-34) PG MCHC 33.6 (30-36) % RDW 13.3 (11.6-14.8) % Plt Count 276 (150-400) X10^3/uL Neut % (Auto) Not Reportable Lymph % (Auto) Not Reportable [place] % (Auto) Not Reportable Eos % (Auto) Not Reportable Baso % (Auto) Not Reportable Lymph # (Auto) Not Reportable [place] # (Auto) Not Reportable Baso # (Auto) Not Reportable Total Counted 100 Seg Neutrophils % 60.0 (38-70) % Band Neutrophils % 1.0 L (3-7) % Lymphocytes % (Manual) 13.0 L (25-45) % Atypical Lymphs % 15.0 H ( - 0) % Monocytes % (Manual) 9.0 (2-11) % Eosinophils % (Manual) 1.0 L (2-4) % Basophils % (Manual) 1.0 (0-1) % Neutrophils # (Manual) 5307 (1222-2361) /uL RBC Morphology Normal morphology Sodium 135 L (137-145) mmol/L Potassium 4.7 (3.4-5.1) mmol/L Chloride 105 (98-107) mmol/L Carbon Dioxide 28 (22-32) mmol/L BUN 16 (9-20) mg/dL Creatinine 0.89 (0.66-1.25) mg/dL Estimated GFR > 60 (>60) mL/min BUN/Creatinine Ratio 18.0 (6-22) Glucose 87 (80-110) mg/dL Calcium 9.9 (8.4-10.2) mg/dL Magnesium 2.3 (1.6-2.3) mg/dL Total Bilirubin 0.5 (0.2-1.3) mg/dL AST 36 (17-59) IU/L ALT 26 (<50) IU/L Alkaline Phosphatase 77 (38-126) U/L Total Creatine Kinase 65 (55-170) U/L Troponin I < 0.012 (0.01-0.034) ng/mL NT-Pro-B Natriuret Pep 132 (<450) pg/mL Total Protein 6.9 (6.3-8.2) g/dL Albumin 4.1 (3.5-5.0) g/dL Globulin 2.8 (1.7-4.1) g/dL Albumin/Globulin Ratio 1.5 (1.0-2.8) Lipase 110 (23-300) U/L Imaging Data Chest x-ray: My Impression: No acute pathology ECG Data Attestation: I personally reviewed and interpreted this ECG as follows: Interpretation: Sinus rhythm Ventricular rate is 67 Normal axis Normal QRS Normal QTC No ST T wave changes MDM Narrative Medical decision making narrative: Patient was asymptomatic. Workup here in the emergency department is unremarkable. Sinus rhythm on the EKG. Low suspicion for ACS. We did discuss the possibility of a transient arrhythmia. Recommended that he contact his primary doctor to discuss the indication for a Holter monitor. Will discharge patient home with return precautions. He expressed understanding and agreement. Discharge Plan Departure Patient Disposition: Home Clinical Impression: Tachycardia Activity Restrictions/Additional Instructions: Recommend that you continue to take all of your medications as directed. I do recommend that you contact your primary doctor to discuss the indications for a Holter monitor. Return to the emergency department for new or worsening symptoms. Prescriptions: No Action aspirin 325 mg tablet 325 mg PO DAILY multivitamin Tablet 1 tab PO DAILY Qty: 90 0RF ascorbate calcium (vitamin C) 500 mg tablet 500 mg PO DAILY Qty: 90 0RF Psyllium Husk 2 tsp PO DAILY Qty: 1 0RF ibuprofen 200 mg Tablet 400 mg PO DAILY PRN (Reason: Pain) calcium carbonate-vitamin D3 [Calcium 500 + D] 500 mg-10 mcg (400 unit) Tablet 1 tab PO DAILY Rx Instructions: 400mg of Calcium, 12.5 mcg of Vit D Referrals: Jeffery Hermosillo MD [Primary Care Provider] - Stand Alone Forms: Patient Portal/API/Survey
[2023-12-22 16:30] VITALS: BP 161/81; PULSE 64; RESP 20; TEMP 37.1; O2SAT 100
== END 2023-12-22 16:32 | disposition home or self-care (01) ==
PROVIDERS: Emergency Provider Emergency Medicine; Family Provider Family Medicine; PCP Internal Medicine
DX: R00.0 Tachycardia, unspecified (principal); R07.9 Chest pain, unspecified
CPT/HCPCS: 36415; 71045; 80053; 82550; 83690; 83735; 83880; 84484; 85007; 85025; 93005; 99283; 99284

== ENCOUNTER → 2023-12-29 08:03 | Outpatient (CLI) | payer BC, SELFPAY ==
[2023-02-16 16:29] VITALS: BMI 26.3
== END ==
LOC: CAR 08:03
PROVIDERS: Family Provider Family Medicine; PCP Internal Medicine; Referring Provider Internal Medicine; Visit Provider Internal Medicine
DX: R00.0 Tachycardia, unspecified (principal)
CPT/HCPCS: 93242

== ENCOUNTER 2024-01-13 08:56 | Day surgery (SDC) | payer BC, SELFPAY ==
[2023-02-16 16:29] VITALS: BMI 26.3
[2024-01-02 11:59] VITALS: BMI 26.5
[2024-01-13] VITALS (12 sets, daily range): BP systolic 103–156; BP diastolic 50–92; PULSE 57–78; RESP 15–68; TEMP 35.7–36.8; O2SAT 95–100; BMI 26.5; BMI 28.1
--- NOTE | 2024-01-13 06:00 | DI.RAD.S_ITS ---
PROCEDURE: XR KNEE RT 1TO2V INDICATIONS: tka TECHNIQUE: 2 view(s) of the knee acquired. COMPARISON: [facility], CR, XR KNEE LT 1TO2V, 02/16/2023, 12:46. [facility], CR, XR KNEE LT 3V, 10/07/2022, 16:39. FINDINGS: Bones: Patient is status post knee joint arthroplasty. Hardware components are in expected positions. Visualized bony structures are intact. Soft tissues: Overlying postoperative changes are noted. IMPRESSION: Expected post-operative appearance of a knee arthroplasty. Dictated by: Fawad Cota M.D. on 01/13/2024 at 14:24 Approved by: Fawad Cota M.D. on 01/13/2024 at 14:24
[2024-01-13] MEDS: LACTATED RINGERS 1,000 ML 42 ML IV (10:00)
[2024-01-13] MEDS: MELOXICAM 7.5 MG TABLET 15 MG PO (10:00)
[2024-01-13] MEDS: ACETAMINOPHEN 325 MG TABLET 975 MG PO (10:01)
--- NOTE | 2024-01-13 10:44 | PM.PREOP ---
Pre-operative Note Interval Note History & Physical reviewed/Exam performed by Physician: Yes Changes to H&P: No
[2024-01-13] MEDS: CEFAZOLIN 2 GM/100 ML PREMIX 100 ML IV ×2 (11:49→19:47)
[2024-01-13] MEDS: TRANEXAMIC ACID 1,000 MG VIAL 2000 MG INJ ×2 (11:50→13:03)
--- NOTE | 2024-01-13 12:08 | SUR.OPER ---
Supine on padded OR bed. Pillow under head, arms secured on padded armboards <90 degree abduction. Safety belt across torso. Non-operative leg secured with tape over blanket over lower leg. Operative leg secured in Izaiah positioner. Foam padded brace at thigh of operative leg.
[2024-01-13] MEDS: ROPIVACAINE/EPI/CLONIDINE/KET 50 ML SYRINGE INJ (12:12)
--- NOTE | 2024-01-13 13:26 | P.OP_ITS ---
Operative Date/Time/Diagnoses Date of procedure: 01/13/24 Pre-op diagnosis: Right knee osteoarthritis Post-op diagnosis: same Procedure & Clinicians Procedure: Right total knee arthroplasty Same procedure as scheduled: Yes Surgeon: Bebo Spears Blocker And Sewer: Maria R Kowalski Anesthesia Type: Spinal, Sedation, Peripheral nerve block and Local Operative Notes Estimated Blood Loss (mL): 100 Procedure in detail: Right Gap-Balanced Jenny Persona Medial-Congruent Primary Total Knee Arthroplasty Implants: * Size 12 Cruciate Retaining Femoral Component * Size G Tibial Component * Size 10 Medial Congruent Polyethylene Insert * Unresurfaced Patella Procedure Summary: This 88-year-old male patient had previously undergone a contralateral total knee arthroplasty from myself and received the same sized implants that I used today. His femoral rotation was 5?. Following distal femoral and proximal tibial cuts his extension gap was fairly tight but there were large posterior osteophytes which loosened up the extension gap and he was able to comfortably achieve full extension when trials were placed. Procedure in Detail: This patient was seen preoperatively and evaluated for knee pain which was refractory to numerous nonoperative treatment modalities. Their pain correlated with radiographic changes demonstrating significant degeneration in the knee joint. The risks and benefits of continued nonoperative management versus operative management were discussed at length and all of the patient?s questions were answered. Additional educational materials providing further details beyond our discussion in clinic were provided via a publicly available patient education video which included the incidence of medical complications associated with total knee arthroplasty, reasons for revision following total knee arthroplasty, and patient satisfaction rates following total knee arthroplasty. That video can be accessed at [email or web address] . With this understanding of the risks inherent to the procedure, the patient elected to move forward with operative management. Following preoperative optimization, the patient was scheduled for surgery. The patient was met in the preoperative holding area the day of the procedure and all questions were answered. The patient?s nares were swabbed with betadine in order to decolonize them from MRSA. Informed consent was signed and the right limb was marked with indelible ink.? The patient was brought back to the operating room where anesthesia was induced. The patient was transferred to the operating table and all bony prominences were padded. The operative site was prepped and draped in the usual sterile fashion. A second prep stick was utilized following drape placement. The incision was marked corresponding to the medial aspect of the tibial tubercle and the patella. Ioban was wrapped circumferentially around the knee. Prior to incision, tranexamic acid and cefazolin were administered. Templating images were displayed. A timeout procedure was performed verifying the patient?s identity, medical comorbidities, allergies, relevant medications, anesthesia type and the surgical plan. All present were in agreement. The assistance of a physician hospital clinic assistant was required for positioning, room setup, soft tissue retraction and wound closure. Without this assistance, the procedure would have been significantly more challenging and time consuming.?? The tourniquet was inflated prior to incision. I made an anterior incision over the knee, dissected through the subcutaneous tissues and identified the lateral border of the VMO. Medial and lateral soft tissue flaps were developed. A medial parapatellar arthrotomy was performed ensuring that adequate capsular tissue would remain for closure at the conclusion of the procedure. The hip was brought into extension and the medial soft tissues were released off the joint line of the tibia. Tissue overlying the distal anterior femur was released to allow for later assessment for anterior notching but left in place. A portion of the retropatellar fat pad was excised while protecting the patellar tendon. The patella was everted. The patella was not resurfaced. Osteophytes were excised and a lateral facetectomy was performed. The patella was released from its everted position.?? I flexed the knee to 90 degrees and placed retractors to allow access to the notch. An opening reamer was used to gain access to the femoral canal and an intramedullary stanley was introduced into the canal. Diaphyseal fit was obtained in order to allow a distal femoral resection at 5 degrees relative to the anatomic axis, thereby aiming to achieve mechanical alignment of the eventual implant. A +1 resection was planned and assessed using an brandi wing. I then made the cut using a sagittal saw. This provided additional access to the femoral notch. The ACL and PCL were excised. Retractors were placed on the lateral and medial tibia. I hyperflexed the knee while externally rotating it to sublux the tibia anteriorly. I placed a PCL retractor posteriorly and used this to provide addit ional anterior subluxation. The remainder of the PCL root was released. An intramedullary reamer was used in the ACL footprint to provide access to the tibial canal. An extramedullary guide was positioned to allow a resection perpendicular to the anatomic and mechanical axes of the tibia, thereby aiming to achieve mechanical alignment of the eventual implant. A +4 resection off the medial tibia was planned and the tibial cutting jig was pinned in place. I evaluated the cut depth, varus-valgus alignment and slope of the planned tibial resection and deemed them satisfactory. I cut the tibia with a sagittal saw while using retractors to protect the MCL, patellar tendon, and posterolateral structures.? The knee was repositioned in extension and the Fuzion soft tissue balancing gauge was introduced. This demonstrated that there was equal tension in the medial and lateral compartments of the knee with the knee in full extension and no additional soft tissue releases were necessary. When 60 pounds of force was applied to the Fuzion device, the extension gap opened to 10 mm. I moved the knee into 90 degrees of flexion, and the Fuzion device was recalibrated by removing a 9 mm leigha to allow assessment of the flexion gap. The Fuzion was placed perpendicular to the resected surface of the tibia and the resected surface of the distal femur. Sixty pounds of traction was applied to match the tension of the extension gap. This externally rotated the femur to 5 degrees. Pins were placed in the 10 mm holes. The measured resection guide was placed over the pins to allow sizing. Appropriate sizing was determined and a 4-in-1 block was placed. This was double checked using the Fuzion device to ensure that it would open to an equal distance as the extension gap when the same amount of force was applied. The Fuzion block was also used to assess flexion gap symmetry. An brandi wing was used to ensure there would be no anterior notching. Retractors were placed to protect the soft tissues during resection. Captured cuts were performed with a sagittal saw for the anterior and posterior femur as well as the corresponding chamfers.? Trial components were placed and the construct was assessed. Range of motion was assessed by ensuring the knee could achieve full extension and assessing maximum passive knee flexion by elevating the femur and allowing the heel to passively fall towards the buttock. Gap symmetry was assessed by stressing the medial and lateral compartments in both extension and flexion. Laxity was assessed in both extension and flexion and the polyethylene trial was adjusted with shims as necessary. Patellar tracking was assessed with knee flexion. Once satisfied with the construct, I moved forward with implant insertion. Lug holes were drilled in the femur and the tibia was prepped ensuring appropriate sizing and rotation relative to the tibial tubercle.?? The bony ends were irrigated and cement was prepared. Portions of the anterior chamfer cut were utilized as cement restrictors in the femur and tibia where intramedullar rods had been utilized. Cement was placed on the entirety of the undersurface of both the tibial and femoral components. Cement was placed onto the dry tibia and pressurized into the cancellous bone. I impacted the tibial component into place. Cement was removed. The tibia was reduced underneath the femur and placed cement onto the dry surface of the resected femur. I placed the femoral component as well as the intended polyethylene trial. Cement was removed from around the femur. I brought the knee into extension and manually pressurized the construct by pushing on the heel while the cement dried. The knee was bathed in a dilute mixture of betadine and peroxide. A mixture of Ropivacaine, Epinephrine, Clonidine and Toradol was infiltrated throughout the soft tissues into structures including the VMO, patellar tendon, quadriceps tendon, MCL and femoral periosteum. A low adductor canal block was also performed using this mixture unless one had been placed preoperatively by anesthesia. The knee was copiously irrigated with pulse lavage. Once cement had been allowed to dry the knee was again trialed. Range of motion was assessed by ensuring the knee could achieve full extension and assessing maximum passive knee flexion by elevating the femur and allowing the heel to passively fall towards the buttock. Gap symmetry was assessed by stressing the medial and lateral compartments in both extension and flexion. Laxity was assessed in both extension and flexion and the polyethylene trial was adjusted with shims as necessary. Patellar tracking was assessed with knee flexion. The tourniquet was let down and the polyethylene trial was removed. I inspected the knee inspected for excess cement and any residual bleeding. Once hemostasis was achieved I inserted the final polyethylene and ensured appropriate engagement of the dovetail locking mechanism.?? The arthrotomy was closed with absorbable interrupted suture ensuring that this extended to the top of the arthrotomy. This was backed up with running barbed suture throughout the arthrotomy. The skin was closed with 2-0 and 3-0 sutures. Surgical glue was applied and a soft dressing was placed.?The sponge, instrument and needle counts were reported as being correct at the end of the case.??No obvious complications occurred. The patient was transferred from the operating table back to a stretcher. The patient emerged from anesthesia without difficulty and was taken to the PACU in a stable condition.? Plan for aftercare: * Weightbearing as tolerated * Mobilization as soon as the patient has recovered from anesthesia. If physical therapists are unavailable at the time the patient is ready to ambulate, then nursing staff should help patient ambulate * Aspirin 81 twice per day for DVT prophylaxis * Multimodal pain regimen with no IV opioids ordered * Anticipate discharge home tomorrow * Follow up at [facility] in 2 weeks * Detailed postoperative instructions available at [email or web address]
[2024-01-13] MEDS: ACETAMINOPHEN 325 MG TABLET 650 MG PO ×2 (18:06→20:32)
[2024-01-13] MEDS: IBUPROFEN 600 MG TABLET PO ×2 (18:06→20:33)
[2024-01-13] MEDS: LACTATED RINGERS 1,000 ML 100 ML IV (18:07)
[2024-01-13] MEDS: DOCUSATE 100 MG CAPSULE PO (20:32)
[2024-01-13] MEDS: OXYCODONE IR 5 MG TABLET PO (22:09)
[2024-01-14] MEDS: OXYCODONE IR 5 MG TABLET PO ×7 (01:19→21:07)
[2024-01-14] MEDS: IBUPROFEN 600 MG TABLET PO ×4 (04:27→21:46)
[2024-01-14] MEDS: ACETAMINOPHEN 325 MG TABLET 650 MG PO ×4 (04:28→21:46)
[2024-01-14] MEDS: CEFAZOLIN 2 GM/100 ML PREMIX 100 ML IV (04:29)
[2024-01-14 06:35] LABS: Hematocrit 36.5 % (41-53); Hemoglobin 12.3 g/dL (13.5-17.5)
[2024-01-14 08:00] VITALS: BP 139/81; PULSE 64; RESP 16; TEMP 36.6; O2SAT 97
[2024-01-14] MEDS: ASCORBIC ACID 500 MG TABLET PO (08:41)
[2024-01-14] MEDS: ASPIRIN EC 325 MG TABLET PO (08:42)
[2024-01-14] MEDS: CHOLECALCIFEROL (VITAMIN D3) 400 UNIT TABLET PO (08:42)
[2024-01-14] MEDS: DOCUSATE 100 MG CAPSULE PO ×2 (08:42→21:07)
[2024-01-14] MEDS: MULTIVITAMIN 1 TABLET 1 TAB PO (08:42)
[2024-01-14] MEDS: CALCIUM CARBONATE 500 MG TAB PO (08:42)
[2024-01-14] MEDS: PSYLLIUM HUSK 1 PACKET PO (08:43)
--- NOTE | 2024-01-14 08:47 | PM.DS.1 ---
History of Present Illness History of Present Illness Date Patient Seen: 01/14/24 Time Patient Seen: 08:47 Chief complaint: OPB Narrative: This patient was seen preoperatively and evaluated for knee pain which was refractory to numerous nonoperative treatment modalities. Their pain correlated with radiographic changes demonstrating significant degeneration in the knee joint. The risks and benefits of continued nonoperative management versus operative management were discussed at length and all of the patient?s questions were answered. Additional educational materials providing further details beyond our discussion in clinic were provided via a publicly available patient education video which included the incidence of medical complications associated with total knee arthroplasty, reasons for revision following total knee arthroplasty, and patient satisfaction rates following total knee arthroplasty. That video can be accessed at [email or web address] . With this understanding of the risks inherent to the procedure, the patient elected to move forward with operative management. Following preoperative optimization, the patient was scheduled for surgery. Discharge Providers Provider Discharge Date: 01/14/24 Primary care physician: Jeffery Hermosillo MD Consults: 01/13/24 06:00 Consult to Anesthesiology Routine Comment: Consulting Provider: Anesthesiologist Reason for consultation: Regional block for post operative pain control 01/13/24 15:26 Consult to Discharge Planning Routine Comment: Consult to Physical Therapy Evaluate & Treat Comment: Physician Instructions: postop TKA protocol Discharge provider: Rick De Souza PA-C Summary Hospital Course Discharge Diagnosis: Right knee osteoarthritis Hospital Course: Procedure: Right total knee arthroplasty Same procedure as scheduled: Yes Surgeon: Bebo Spears Sports Internship: Maria R Kowalski Anesthesia Type: Spinal, Sedation, Peripheral nerve block and Local Operative Notes Estimated Blood Loss (mL): 100 Procedure in detail: Right Gap-Balanced Jenny Persona Medial-Congruent Primary Total Knee Arthroplasty Implants: Size 12 Cruciate Retaining Femoral Component Size G Tibial Component Size 10 Medial Congruent Polyethylene Insert Unresurfaced Patella Procedure Summary: This 88-year-old male patient had previously undergone a contralateral total knee arthroplasty from myself and received the same sized implants that I used today. His femoral rotation was 5?. Following distal femoral and proximal tibial cuts his extension gap was fairly tight but there were large posterior osteophytes which loosened up the extension gap and he was able to comfortably achieve full extension when trials were placed. Status at Discharge Cognitive/behavioral status at discharge: oriented Functional status at discharge: uses cane/walker Overall status at discharge: patient is progressing back to baseline Time Spent with Patient Time spent: Less than 30 minutes Exam Vital Signs (past 8 hours): - 01/14/24 08:00 Temperature 97.9 F Pulse Rate 64 Respiratory Rate 16 Blood Pressure 139/81 Pulse Oximetry 97 Oxygen Flow Rate 0 Oxygen Delivery Method Room Air Oxygen Flow Rate 0 Narrative Exam Narrative: Patient is found lying in bed in pain in his right knee. Says the pain was abrupt within the last few hours. Having difficulty getting it under control with oral medications. Denies any shortness of breath nausea vomiting fever or chills. The patient would like to be discharged home today if he is able to ambulate with physical therapy. Denies any new numbness or tingling down the right leg. Does describe some cramping over his right hip and thigh. 5/5 strength in hip flexors, quadriceps, hamstrings, DF, PF, EHL bilaterally. Sensation to light touch intact throughout BLE. Calves soft, compressible, nontender. Dressing placed intraoperatively CDI. SCDs on and functioning Objective Labs 01/14/24 12:43 Labs: Laboratory Results - last 24 hr 01/14/24 06:20 Hgb 12.3 L Hct 36.5 L PFSH Medical History (Updated 01/06/24 @ 00:00 by ) History of Holter monitoring History of COVID-19 (09/2022) BPH (benign prostatic hyperplasia) SCC (squamous cell carcinoma) (2015) Membranous urethral stricture Erectile dysfunction History of urethral stricture Lower urinary tract symptoms (LUTS) TIA (transient ischemic attack) (~2009) Cancer of prostate (03/22/11) Unspecified essential hypertension (03/22/11) History of colon polyps (03/22/11) Other and unspecified hyperlipidemia (03/22/11) Low back pain (03/10/15) Inguinal hernia without obstruction or gangrene Surgical History (Updated 01/02/24 @ 13:25 by Nava Mojica RN) 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 Other Cancer Social History marital status: number of children: 3 household members: spouse Smoking Status: Never smoker alcohol intake: current caffeine: Yes Discharge Assessment & Plan Assessment and Plan Assessment: Status post right TKA Plan of Treatment: Discharge home pending PT approval. Patient is ordered hydroxyzine 25 mg q.6 hours PRN for spasms and cramps in the lower extremities. We will prescribe same prescription upon discharge. Patient will restart his aspirin 325 mg daily for DVT prevention. Baseline multimodal pain control with acetaminophen and meloxicam. Patient has been prescribed oxycodone and meloxicam instructed in the use at preoperative visit. Ambulate with assistive devices. Initiate postoperative physical therapy in 5-10 days. Follow up in clinic in 2 weeks for wound check. Addendum Patient had difficulty with PT with mobilizing and stair climbing. Orthostatic hypotension observed with lightheadedness during PT visits. Patient did not feel comfortable being discharged home. EKG perormed: NSR Repeat H&H: improving from this mornings draw. Continue to observe due to patient recent cardiac history of sudden elevation of blood pressure. Cancel discharge orders for today. Notified Dr. Spears, he agrees with plan. Discharge Plan Discharge Plan Patient Disposition: Home Provider Discharge Comment: DC pending PT approval Discharge orders & Medications Prescriptions: Continued aspirin 325 mg tablet 325 mg PO DAILY multivitamin Tablet 1 tab PO DAILY Qty: 90 0RF ascorbate calcium (vitamin C) 500 mg tablet 500 mg PO DAILY Qty: 90 0RF calcium carbonate-vitamin D3 [Calcium 500 + D] 500 mg-10 mcg (400 unit) Tablet 1 tab PO DAILY Rx Instructions: 400mg of Calcium, 12.5 mcg of Vit D psyllium Powder 2 tsp PO DAILY Rx Instructions: mix into at least 4 oz water or juice before administering Discontinued ibuprofen 200 mg Tablet 400 mg PO DAILY PRN (Reason: Pain) Follow up/Referrals: Jeffery Hermosillo MD [Primary Care Provider] - Diet/Activity/Treatments Diet: Diet as Tolerated Activity: Weightbearing as tolerated Cold/Heat Therapy: Ice to knee as needed for pain. Skin/Wound/Dressing Care Report to your healthcare provider any signs of infection, such as:: chills, fever, night sweats, unusual drainage and unusual redness Dressing: May shower. Leave dressing in place until follow up in office. No bathing or otherwise soaking incision. Call the office if the dressing becomes saturated inside. Visit Report/Discharge Packet Instructions: How to Use an Incentive Spirometer, DI for Knee Replacement, DI for Constipation, How to Prevent Falls, How to Apply an Hugo Wrap, DI for Prescription Opioid Use Stand Alone Forms: Patient Portal/API, Stroke Signs & Symptoms, Surgery Discharge Discharge Data Primary Care Provider: Jeffery Hermosillo Attending Provider: Bebo Spears VTE Deep Vein Thrombosis/Pulmonary Embolism Present on Admission: No
--- NOTE | 2024-01-14 08:54 | CM.DANOTE ---
B DCP Assessment Note Pt is an 88yo M POD1 total right knee with Dr. Spears. PMH of left knee with Secrist 02/16/23. 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 per chart, pt lives in [place] with spouse Pippa. earlier this year dc'd home with spouse next day after left knee surgery no CM needs. Per chart, pt has a cane/walker. PT/OT pending. DC order placed, will dc home pending mobilizing with therapies. P: PT pending, anticipate dc home with spouse today no CM needs. NO identified barriers to safe dc home identified at this time. CM team will continue to follow as needed BA Albrecht Discharge Planning/Care Management CM Discharge Assessment Start: 01/14/24 08:52 Freq: Status: Active Protocol: Document 01/14/24 08:53 SL (Rec: 01/14/24 08:54 SL [id number]) Discharge Planning Assessment Assigned Trainer BA Garcia DPOA/Assigned Designee Name daniel Das Contact Information [phone] Advance Directives? Yes Advance Directives on File Yes History Provided By Patient,Significant Other Prior Living Arrangements House Household Members spouse Type of transporation used prior to Drives own vehicle admit Independent with ADL's Yes Is patient alert and oriented? Yes Patient/Family Preference OP PT Therapy Discharge Plan Home Transportation Arrangement Spouse Referrals Initiated None needed Review Status In Process Please Provide Date Initial DC 01/14/24 Assessment Was Performed Next Review Type Continued Stay Review Pre-Anesthesia Assessment Start: 01/02/24 11:59 Freq: Status: Active Protocol: Document 01/02/24 11:59 LB (Rec: 01/02/24 12:09 LB [id number]) Pre-Anesthesia Assessment PAC Comment 01/02/24 Phone assessment. Preferred Name Torgy Patient Information Reviewed Via Phone Assessment Assessment Completed With Patient Diagnostic Results BMP/CMP,CBC,EKG Comment 12/22/23 at . Primary Care Provider Jeffery Hermosillo Seen Specialist in Last 12 Months Yes Specialist Seen Emergency,Orthopedist Primary Language [place] Island[place] Preferred Language [place] Psychological Tests Sales Agent Required No Height 177.8 cm Weight 83.915 kg Body Mass Index (BMI) 26.5 Hearing Ability Normal Visual Assist None Dentition Type Teeth, Natural Present Other Aids No Hx Anesthesia Reactions No Hx Family Anesthesia Reaction No Hx Malignant Hyperthermia No Hx Blood Transfusions No Anesthesia Review Requested No Car Icer No alcohol intake current alcohol intake frequency a few times a week Smoking Status Never smoker Substance Use Type does not use Pain Present Pain Reported Comment Right knee. Musculoskeletal Symptoms Joint Pain History of Falling (Recent or History of No ) Patient is completely paralyzed or No completely immobile Mental Status Oriented to own ability Comment Will bring walker. Is patient on oxygen? No Does patient have GUTIERREZ/SOB No Hx Sleep Apnea No CPAP/BIPAP use not prescribed Currently Taking a Beta Lizzette No Can You Climb a Flight of Stairs Without Yes SOB Hx Chest Pain Yes: 12/22/23 chest tightness with tachycardia. Hx SOB No Hx Syncope or Dizziness No Anti-Coagulant Therapy Yes: Aspirin 325mg daily. 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 Hx Pacemaker/ICD No Cardiac Clearance Received Not Applicable Dysphagia No Chronic UTI No Bladder Pattern Nocturia Urinary Catheter Present No Hx Urinary Self Catheterization No Comment Difficult catheter insertion. Diabetes No Hx Drug Resistant Organism No Presence of External or Internal Medical Yes: Bilateral IOLs, left knee Devices . ? hernia mesh. Have you had any close contact with No someone diagnosed with COVID-19? Are you experiencing any of these No symptoms symptoms? Received a COVID vaccine? Yes Comment Denies covid last 2 months. Marital Status Lives With spouse Current Living Arrangements House Number of Floors (Floors) 3 or More Floors Number of Stairs To Enter/Railing? 8 steps with railing to get to main floor. Support System Friend(s) Does the Patient Have Assistance After Yes Surgery Patient Discharge Plan Description Return Home Feels Safe in Current Environment Yes Do you have a plan to hurt yourself or No Plan others? Do You Have Any Spiritual Beliefs That No May Affect Your HC Choices? Do You Have Any Cultural Practices That No May Affect Your HC Choices? Emergency Contact Name Pippa Gibbs () Emergency Contact Advance Directives? Yes Advance Directives on File Yes Requested Patient Bring Advanced Not Applicable Directives DOS Power of Energy Project Manager Yes Power of Energy Project Manager Name Pippa Gloria () Power of Energy Project Manager PAC Instructions Assistance for 24 hours post- op,Do not shave/clip surgical site,Durable medical equipment ,Medications to take/avoid,No ETOH/petroleum product on skin DOS,NPO,Post-op transportation,Pre-surgical wash,Sturdy shoes/comfortable clothes,Do not bring valuables and remove jewelry
[2024-01-14] MEDS: hydrOXYzine HCL 25 MG TABLET PO ×3 (09:10→21:07)
--- NOTE | 2024-01-14 09:30 | PT.IIE ---
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) Hx of bilateral cataract extraction (2022) Hx of inguinal hernia repair (2015) Hx of thumb surgery (1996) Status post transurethral resection of prostate (2002) Medical History (Last Updated 01/02/24 @ 13:27 by Nava Mojica, RN) BPH (benign prostatic hyperplasia) Cancer of prostate (03/22/11) Erectile dysfunction History of colon polyps (03/22/11) History of COVID-19 (09/2022) History of Holter monitoring History of urethral stricture Inguinal hernia without obstruction or gangrene Low back pain (03/10/15) Lower urinary tract symptoms (LUTS) Membranous urethral stricture Other and unspecified hyperlipidemia (03/22/11) SCC (squamous cell carcinoma) (2015) TIA (transient ischemic attack) (~2009) Unspecified essential hypertension (03/22/11) Physical Therapy Inpatient Evaluation/Re-Eval M1 PT/OT-IP Prior Functional Status Start: 01/14/24 12:22 Freq: NEEDED Status: Active Protocol: Document 01/14/24 09:30 AB (Rec: 01/14/24 12:37 AB [id number]) Medical Review Prior Functional Status Medical History Reviewed Yes Communication able to make needs known Mobility and Gait pt stated that he was independent with all mobilities and ambulation without AD but occasionall uses a SPC depending on his knee pain Social History Household Members spouse Living Arrangements House Number of Floors (Floors) 3 or More Floors Number of Stairs To Enter/Railing? pt stays on main level of the house: 5 steps L rail + 3 steps L rail to get to main level of the house Home Environment High Toilet,Tub/Shower Home Equipment Front Wheel Walker,Shower Seat without Backrest,Hand Held Shower,Grab Bars In Shower Additional Social History Comment has a toilet safety frame M2 PT-IP Current Condition Start: 01/14/24 12:22 Freq: NEEDED Status: Active Protocol: Document 01/14/24 09:30 AB (Rec: 01/14/24 12:37 AB [id number]) Physical Therapy Current Condition Current Condition Evaluation Date 01/14/24 Treatment Diagnosis s/p R TKA; difficulty in walking Onset Date 01/13/24 M3 PT-IP Subjective Start: 01/14/24 12:22 Freq: NEEDED Status: Active Protocol: Document 01/14/24 09:30 AB (Rec: 01/14/24 12:37 AB [id number]) Subjective Physical Therapy Visit Type Type Initial Evaluation Visit Start Time 09:30 Visit Stop Time 10:20 Number of SYSTEMS SOFTWARE DESIGNER Visits 0 Physical Therapy Visit Comments Patient Comments agreeable to do PT Therapy Pain Assessment Pain When Pain Assessed At Rest Pain Present Pain Present Pain Reported Location Right Knee Intensity 6 Scale Used Numeric (0 - 10) Pain Behaviors Facial Grimacing,Guarding, Holding Area,Wincing Pain Management Techniques Apply Cold,Distraction, Modification of Treatment,Re- positioning,Timing of Activity with Medications M4 PT-IP Mobility and Gait Start: 01/14/24 12:22 Freq: NEEDED Status: Active Protocol: Document 01/14/24 09:30 AB (Rec: 01/14/24 12:37 AB [id number]) PT-Bed Mobility Assessment Supine to Sit Supine to Sit Standby Assistance Sit to Supine Sit to Supine Standby Assistance PT-Transfer Assessment Sit to and From Stand Sit to and from Stand Moderate Assistance,1 Person Assistance,Use of Upper Extremities Equipment Transfer Assistive Device Gait Belt,Front Wheeled Walker Orthotic/Prosthetic Devices or Brace: No Comments Mobility Comments pt supine in bed and agreeable to do PT. obtained PLOF and home set up from pt. post-op folder provided and reviewed contents. BP in supine: 170/ 86. completed RLE heel slides in bed. pt completed supine to sit SBA and max cues for techniques. pt was able to sit on EOB CGA. BP checked: 155/89. pt with c/o slight lightheadedness. pt sat for a few more minutes and wants to use the urinal. completed sit to stand from EOB mod A and max cues. able to stand min to mod A for standing balance using FWW while using the urinal. pt sat back on EOB. refused to transfer and sit on the chair. BP checked: 128/75. pt completed sit to supine SBA. positioned pt on the chair. BP checked: 165/85. call light and table placed within reach. PT-Balance Assessment Sitting Balance and Reactions Static Sitting Balance Ability Good Dynamic Sitting Balance Ability Fair Standing Balance and Reactions Static Standing Balance Ability Poor Dynamic Standing Balance Ability Poor Device Used FWW M5 PT-IP Objective Assessments Start: 01/14/24 12:22 Freq: NEEDED Status: Active Protocol: Document 01/14/24 09:30 AB (Rec: 01/14/24 12:37 AB [id number]) Orientation Orientation/Cognition Level of Alertness Alert Orientation Name,Age,Place,Situation Language Function Ability No Deficits Noted Safety Awareness Decreased Safety Awareness Memory Description No Deficits Noted Gross Range of Motion Lower Extremity ROM Assessment Right Impaired Impairments R knee flexion: ~ 50 deg R knee extension: ~ 20 deg less to 0 Strength Lower Extremity Strength Assessment Right Impaired Hip 3+/5 Knee 3+/5 Muscle Tone Muscle Tone WNL Yes M6 PT-IP Treatment Start: 01/14/24 12:22 Freq: NEEDED Status: Active Protocol: Document 01/14/24 09:30 AB (Rec: 01/14/24 12:37 AB [id number]) Physical Therapy Treatment Exercises Exercises Heel Slides Education Education Provided Precautions,Weight Bearing Status,Post-Op Packet,Safety M7 PT-IP Assessment and Plan Start: 01/14/24 12:22 Freq: NEEDED Status: Active Protocol: Document 01/14/24 09:30 AB (Rec: 01/14/24 12:37 [id number]) PT Summary Assessment and Plan Potential Rehabilitation Potential Fair Status of Condition at Evaluation Evolving Summary Impairments Pain,ROM,Strength,Balance, Coordination,Sensation,Tone, Cognition,Bed Mobility, Transfers,Gait,Activity Tolerance Assessment Summary pt is an 88 y/o M s/p R TKA POD 1. pt is WBAT on RLE. pt requiring SBA with bed mobility and mod A for sit to stand. unable to ambulate and unable to tolerate much activity today due to c/o increase knee pain and decrease in BP from 170/86 in supine to 128/75 after standing with c/o lightheadedness. d/c plan depends on progress but at this time, may require SNF rehab. will continue to assess . Goals Bed Mobility Goal Independent Transfer Goal Independent,Front Wheeled Walker Gait Goal Independent,Front Wheel Walker Gait Distance 150 Other Goals up/down 8 steps L rail ascending SBA Days to Meet Goals 5 Frequency of Treatment Frequency Of Treatment Twice a Day Treatment Plan Physical Therapy Treatment Plan Bed Mobility Training,Transfer Training,Gait Training, Therapeutic Exercise,Balance Retraining,Post Op Education, Discharge Planning,Hot or Cold Pack,Neuromuscular Re-ed, Coordination Retraining,Manual Therapy Weight Bearing Status Weight Bearing Status Weight Bear as Tolerated Allowed Weight Bearing Amount (enter % RLE WBAT or #) (%) Recommendations To Nursing Amount of Assist Needed 1 Person Assist Discharge Recommendations PT Discharge Recommendations Home with 30/08 Assist Available,Home Health,SNF Rehab,Home vs SNF Transportation Needs at Discharge Private Vehicle,Wheelchair/ Cabulance
[2024-01-14 12:52] LABS: Hematocrit 39.2 % (41-53)
--- NOTE | 2024-01-14 13:19 | EKG_ITS ---
[address] [address] Test Date: 2024-01-14 Pat Name: Nohemy Gibbs Department: [facility] Room: 206 Gender: Male Rubber Tester: LETTY : [id number] Requested By: Order Number: [id number] Reading MD: Jeffery Hermosillo MD Measurements Intervals [place] Rate: 74 P: 5 NC: 170 QRS: 11 QRSD: 88 T: 45 QT: 386 QTc: 428 Interpretive Statements Normal sinus rhythm Electronically Signed On 01-15-2024 17:06:23 PST by Jeffery Hermosillo MD
--- NOTE | 2024-01-14 14:24 | PT.IPTN ---
Current Diagnoses Unilateral primary osteoarthritis, right knee (01/13/24) Surgery Performed Operation Date: 01/13/24 10:15 Actual Procedures p Total Knee Arthroplasty(Right) - Bebo Spears MD Physical Therapy Treatment Note M2 PT-IP Current Condition Start: 01/14/24 12:22 Freq: NEEDED Status: Active Protocol: Document 01/14/24 09:30 AB (Rec: 01/14/24 12:37 AB [id number]) Physical Therapy Current Condition Current Condition Evaluation Date 01/14/24 Treatment Diagnosis s/p R TKA; difficulty in walking Onset Date 01/13/24 M3 PT-IP Subjective Start: 01/14/24 12:22 Freq: NEEDED Status: Active Protocol: Document 01/14/24 14:55 TS (Rec: 01/14/24 15:00 TS [id number]) Subjective Physical Therapy Visit Type Type Treatment Note Visit Start Time 14:24 Visit Stop Time 14:44 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 Therapy Pain Assessment Pain When Pain Assessed At Rest Pain Present Pain Present Pain Reported M4 PT-IP Mobility and Gait Start: 01/14/24 12:22 Freq: NEEDED Status: Active Protocol: Document 01/14/24 14:55 TS (Rec: 01/14/24 15:00 TS [id number]) PT-Bed Mobility Assessment Supine to Sit Supine to Sit Contact Guard Assistance PT-Transfer Assessment Sit to and From Stand Sit to and from Stand Moderate Assistance,1 Person Assistance,Use of Upper Extremities Comments Mobility Comments BP supine 172/88. Supine to sit CGA from flat bed. BP in sitting 195/95. STS with FWW ModA, pt has some buckling of knees. BP in standing 160/90, pt reports dizzness. He requested to the commode. Stand pviot to commode Karuna with FWW. Pt was left on the commode, all needs met. Gait Assessment Comments Gait Comments Stand pivot PT-Balance Assessment Sitting Balance and Reactions Static Sitting Balance Ability Good Dynamic Sitting Balance Ability Fair Standing Balance and Reactions Static Standing Balance Ability Poor Dynamic Standing Balance Ability Poor Device Used FWW M5 PT-IP Objective Assessments Start: 01/14/24 12:22 Freq: NEEDED Status: Active Protocol: Document 01/14/24 09:30 AB (Rec: 01/14/24 12:37 AB [id number]) Orientation Orientation/Cognition Level of Alertness Alert Orientation Name,Age,Place,Situation Language Function Ability No Deficits Noted Safety Awareness Decreased Safety Awareness Memory Description No Deficits Noted Gross Range of Motion Lower Extremity ROM Assessment Right Impaired Impairments R knee flexion: ~ 50 deg R knee extension: ~ 20 deg less to 0 Strength Lower Extremity Strength Assessment Right Impaired Hip 3+/5 Knee 3+/5 Muscle Tone Muscle Tone WNL Yes M6 PT-IP Treatment Start: 01/14/24 12:22 Freq: NEEDED Status: Active Protocol: Document 01/14/24 14:55 TS (Rec: 01/14/24 15:00 TS [id number]) Physical Therapy Treatment Education Education Provided Precautions,Weight Bearing Status,Post-Op Packet,Safety M7 PT-IP Assessment and Plan Start: 01/14/24 12:22 Freq: NEEDED Status: Active Protocol: Document 01/14/24 14:55 TS (Rec: 01/14/24 15:00 TS [id number]) PT Summary Assessment and Plan Potential Rehabilitation Potential Fair Summary Progress Towards Goals Slow Progress due to Pain,Slow Progress due to Medical Issues,Slow Progress due to Activity Tolerance Assessment Summary Pt continues to be orthostatic (see vitals in mobility comments). He requires ModA to stand and Karuna for transfer to the commode. His Le's do buckle when standing and performing transfer. Pt will need to complete 8 steps to get into home. PT is recommending home 24/7 assist vs SNF and HHPT. Goals Bed Mobility Goal Independent Transfer Goal Independent,Front Wheeled Walker Gait Goal Independent,Front Wheel Walker Gait Distance 150 Other Goals up/down 8 steps L rail ascending SBA Days to Meet Goals 5 Frequency of Treatment Frequency Of Treatment Twice a Day Treatment Plan Physical Therapy Treatment Plan Bed Mobility Training,Transfer Training,Gait Training, Therapeutic Exercise,Balance Retraining,Post Op Education, Discharge Planning,Hot or Cold Pack,Neuromuscular Re-ed, Coordination Retraining,Manual Therapy Weight Bearing Status Weight Bearing Status Weight Bear as Tolerated Allowed Weight Bearing Amount (enter % RLE WBAT or #) (%) Recommendations To Nursing Amount of Assist Needed 2 Person Assist Discharge Recommendations PT Discharge Recommendations Home with 24/7 Assist Available,Home Health,SNF Rehab,Home vs SNF Transportation Needs at Discharge Private Vehicle,Wheelchair/ Cabulance
[2024-01-14 16:00] VITALS: BP 172/96; PULSE 75; RESP 19; TEMP 36.8; O2SAT 98
--- NOTE | 2024-01-14 16:22 | PM.PNPO.1 ---
Subjective Subjective Interval history: Patient is found lying in bed in pain in his right knee. Says the pain was abrupt within the last few hours. Having difficulty getting it under control with oral medications. Denies any shortness of breath nausea vomiting fever or chills. The patient would like to be discharged home today if he is able to ambulate with physical therapy. Denies any new numbness or tingling down the right leg. Does describe some cramping over his right hip and thigh. Exam Vital Signs (past 8 hours): Oxygen Delivery Method Room Air Oxygen Flow Rate 0 Narrative Exam Narrative: 5/5 strength in hip flexors, quadriceps, hamstrings, DF, PF, EHL bilaterally. Sensation to light touch intact throughout BLE. Calves soft, compressible, nontender. Dressing placed intraoperatively CDI. SCDs on and functioning Resp Effort & Inspection: normal respiratory effort and able to speak in complete sentences Objective Labs 01/14/24 12:43 Labs: Laboratory Results - last 24 hr 01/14/24 01/14/24 06:20 12:43 Hgb 12.3 L 13.0 L Hct 36.5 L 39.2 L PFSH Medical History (Updated 01/06/24 @ 00:00 by ) History of Holter monitoring History of COVID-19 (09/2022) BPH (benign prostatic hyperplasia) SCC (squamous cell carcinoma) (2015) Membranous urethral stricture Erectile dysfunction History of urethral stricture Lower urinary tract symptoms (LUTS) TIA (transient ischemic attack) (~2009) Cancer of prostate (03/22/11) Unspecified essential hypertension (03/22/11) History of colon polyps (03/22/11) Other and unspecified hyperlipidemia (03/22/11) Low back pain (03/10/15) Inguinal hernia without obstruction or gangrene Surgical History (Updated 01/02/24 @ 13:25 by Nava Mojica RN) 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 Other Cancer Social History marital status: number of children: 3 household members: spouse Smoking Status: Never smoker alcohol intake: current caffeine: Yes Assessment & Plan Post-op Postoperative Procedures: Procedures Operation Date: 01/13/24 10:15 Actual Procedure Side Surgeon p Total Knee Arthroplasty Right Bebo Spears MD Postoperative day: 1 Postoperative plan narrative: Patient planned to be discharged today. However, he had difficulty mobilizing and stairclimbing with PT. He also registered orthostatic hypotension during each PT visit today. At one point BP was measured at 195/95 sitting to 160/90 standing. C/o of lightheadedness with PT maneuvers. H&H repeated: trending back to normal range since this morning's draw. EKG: NSR Continue to observe for another evening due to patient history of acute hypertension during pre-op visit, PMH of TIA and difficultly with mobilization with PT. Notified Dr. Spears of findings and he is in agreement. Continue with multi-modal pain control. Added hydroxyzine 25mg q6hr prn for leg cramps while inpatient. Rx'ed for home use through [facility] EMR. Ambulate with PT ASA 325mg daily and SCDs on at in bed for DVT prevention. Reevaluate tomorrow for discharge to home. Time Spent With Patient Time with patient: 15-24 minutes Quality VTE Deep Vein Thrombosis/Pulmonary Embolism Present on Admission: No
[2024-01-14 20:06] VITALS: BP 165/95; PULSE 83; RESP 18; TEMP 36.6; O2SAT 96
[2024-01-14 22:00] VITALS: BP 165/95; PULSE 83; RESP 18; TEMP 36.6; O2SAT 96
[2024-01-15] MEDS: OXYCODONE IR 5 MG TABLET PO ×5 (00:36→12:42)
[2024-01-15 02:00] VITALS: BP 138/75; PULSE 77; RESP 18; TEMP 36.7; O2SAT 94
[2024-01-15] MEDS: hydrOXYzine HCL 25 MG TABLET PO (03:38)
[2024-01-15] MEDS: IBUPROFEN 600 MG TABLET PO ×2 (03:38→09:29)
[2024-01-15] MEDS: ACETAMINOPHEN 325 MG TABLET 650 MG PO ×2 (03:38→09:30)
[2024-01-15 06:00] VITALS: BP 97/52; PULSE 74; RESP 18; TEMP 36.4; O2SAT 98
[2024-01-15 08:18] VITALS: BP 142/86; PULSE 73; RESP 17; TEMP 36.6; O2SAT 95
[2024-01-15] MEDS: TRAMADOL 50 MG TABLET PO (08:39)
[2024-01-15] MEDS: ASPIRIN EC 325 MG TABLET PO (08:40)
[2024-01-15] MEDS: DOCUSATE 100 MG CAPSULE PO (08:40)
[2024-01-15] MEDS: MULTIVITAMIN 1 TABLET 1 TAB PO (08:40)
[2024-01-15] MEDS: PSYLLIUM HUSK 1 PACKET PO (08:40)
[2024-01-15] MEDS: CHOLECALCIFEROL (VITAMIN D3) 400 UNIT TABLET PO (08:40)
[2024-01-15] MEDS: ASCORBIC ACID 500 MG TABLET PO (09:29)
[2024-01-15] MEDS: CALCIUM CARBONATE 500 MG TAB PO (09:29)
--- NOTE | 2024-01-15 10:19 | PM.PN.1 ---
Subjective Subjective Date Patient Seen: 01/15/24 Time Patient Seen: 10:19 Interval history: 88-year-old male postop day 2 right total knee arthroplasty with Dr. Spears--stayed another night in the hospital due to difficulties with PT and pain control. This morning lying in bed no acute distress. States passed gas this morning. Vital signs stable. Exam Vital Signs (past 8 hours): - 01/15/24 06:00 01/15/24 08:18 Temperature 97.5 F L 97.9 F Pulse Rate 74 73 Respiratory Rate 18 17 Blood Pressure 97/52 L 142/86 H Pulse Oximetry 98 95 Oxygen Flow Rate 0 0 Oxygen Delivery Method Room Air Oxygen Flow Rate 0 Narrative Exam Narrative: Alert oriented no acute distress Lying in bed. Respiratory on labored on room air Heart regular rate and rhythm Bilateral upper extremities without limitation Left lower extremity total knee arthroplasty scar 5/5 strength normal function. Right lower extremity wrapped in the Hugo wrap with Webril. 3/5 quad function. 5/5 dorsiflexion plantar flexion. Calf and thigh soft. Dressing taken down to the Aquacel which is clean dry and intact. Again quad weakness noted. Overall range of motion passive to full extension. But deficient in active straight leg raise. Objective Labs 01/14/24 12:43 Labs: Laboratory Results - last 24 hr 01/14/24 12:43 Hgb 13.0 L Hct 39.2 L PFSH Medical History (Updated 01/15/24 @ 10:22 by Gege Walker MD) History of Holter monitoring History of COVID-19 (09/2022) BPH (benign prostatic hyperplasia) SCC (squamous cell carcinoma) (2015) Membranous urethral stricture Erectile dysfunction History of urethral stricture Lower urinary tract symptoms (LUTS) TIA (transient ischemic attack) (~2009) Cancer of prostate (03/22/11) Unspecified essential hypertension (03/22/11) History of colon polyps (03/22/11) Other and unspecified hyperlipidemia (03/22/11) Low back pain (03/10/15) Inguinal hernia without obstruction or gangrene Surgical History (Updated 01/15/24 @ 10:22 by Gege Walker MD) 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 Other Cancer Social History marital status: number of children: 3 household members: spouse Smoking Status: Never smoker alcohol intake: current caffeine: Yes Assessment & Plan Assessment and plan (1) Arthritis of knee, right: Status: Acute (2) History of total knee arthroplasty: Qualifiers: Laterality: right Qualified Code(s): Z96.651 - Presence of right artificial knee joint Status: Acute Plan Patient was postop day 2 status post right total knee arthroplasty. He is quadriceps inhibition which can happen after knee replacement from trauma of surgery were tourniquet use. This usually idiopathic resolves but can take several weeks. I have recommended a hinged knee brace locked in extension for ambulation to provide stability. Can be unlocked at times not ambulating and can be unlocked or off in bed. He may take down the dressing to the Aquacel bandage and may shower with the Aquacel. Otherwise he is doing well pain better controlled. And can discharge home today. Demonstrated use of the brace today. The patient was observed to ambulate well with a locked in extension. And was able to enter and exit the bed. Patient was indicated for the hinged knee brace due to right lower extremity weakness. Indications for 1 month of use or until quadriceps function returns. Diagnosis is knee arthritis status post knee arthroplasty Instructions for brace use and instructions for medication dosing maximum and intervals were discussed with the patient and his today at bedside for a total of 30 minutes. Time-Based Coding :: [TOTAL MINUTES] spent with patient and on the chart (including review of chart, obtaining history, exam, reviewing outside data, placing orders, documenting exam and treatment plan, and counseling patient) on [DATE]. Quality VTE Deep Vein Thrombosis/Pulmonary Embolism Present on Admission: No
--- NOTE | 2024-01-15 10:25 | PM.DS.1 ---
History of Present Illness History of Present Illness Date Patient Seen: 01/15/24 Time Patient Seen: 10:26 Date of Onset of Symptoms: 01/13/24 Chief complaint: OPB Narrative: The patient is an 88-year-old male had a right total knee arthroplasty with Dr. Spears on 01/13/2024 Postoperatively had difficulties with pain control and difficulty working with PT. due to his knee ?buckling?. On postoperative day 2 his pain was better controlled. On examination he is quadriceps inhibition. I have recommended a hinged knee brace for ambulation until his quadriceps function returns. We discussed this can occur after trauma or surgery and typically wakes up in a week or 2 and the knee brace we will provide stability while ambulating and allow safe discharge home. Vital signs were otherwise stable and acceptable for discharge home on the date of discharge. Discharge Providers Provider Date of admission: 01/13/2024 Discharge Date: 01/15/24 Primary care physician: Jeffery Hermosillo MD Consults: 01/13/24 06:00 Consult to Anesthesiology Routine Comment: Consulting Provider: Anesthesiologist Reason for consultation: Regional block for post operative pain control 01/13/24 15:26 Consult to Discharge Planning Routine Comment: Consult to Physical Therapy Evaluate & Treat Comment: Physician Instructions: postop TKA protocol Discharge provider: Gege Walker MD Summary Hospital Course Discharge Diagnosis: Right knee arthritis status post total knee arthroplasty Hospital Course: 88-year-old male with right knee arthritis status post total knee replacement in the current hospitalization. On postop day 1 he had difficulties with pain control and mobilization with physical therapy and was indicated for further physical therapy and pain medication adjustment. On postoperative day 2 patient was more comfortable and passing gas and pain controlled. He was found to have quadriceps inhibition with inability to do a straight leg raise against gravity. He was indicated for a hinged knee brace locked in extension for ambulation. We discussed the quadriceps inhibition can occur after knee arthroplasty can take sometimes a week or 2 to regain function this can be due to trauma from surgery, anesthetic or idiopathic and typically resolves with tension of time. The brace provide stability for ambulation during this recovery period. Brace was fit and patient demonstrated safe ambulation with a walker. He was stable for discharge on postoperative day 2 Status at Discharge Cognitive/behavioral status at discharge: oriented Functional status at discharge: uses cane/walker Overall status at discharge: patient is progressing back to baseline Time Spent with Patient Time spent: Greater than 30 minutes Exam Vital Signs (past 8 hours): - 01/15/24 06:00 01/15/24 08:18 Temperature 97.5 F L 97.9 F Pulse Rate 74 73 Respiratory Rate 18 17 Blood Pressure 97/52 L 142/86 H Pulse Oximetry 98 95 Oxygen Flow Rate 0 0 Oxygen Delivery Method Room Air Oxygen Flow Rate 0 Narrative Exam Narrative: Breathing unlabored on room air no acute distress Left lower extremity 5/5 strength well-healed total knee scar Right lower extremity demonstrating 3/5 quadriceps. 5/5 dorsiflexion plantar flexion. Aquacel dressing clean dry and intact. Calf and thigh soft. Due to quadriceps intubation patient was fit with a hinged knee brace. He demonstrated appropriate donning of the brace and ambulation with a walker with the brace in place. Objective Labs 01/14/24 12:43 Labs: Laboratory Results - last 24 hr 01/14/24 12:43 Hgb 13.0 L Hct 39.2 L PFSH Medical History (Updated 01/15/24 @ 10:22 by Gege Walker MD) History of Holter monitoring History of COVID-19 (09/2022) BPH (benign prostatic hyperplasia) SCC (squamous cell carcinoma) (2015) Membranous urethral stricture Erectile dysfunction History of urethral stricture Lower urinary tract symptoms (LUTS) TIA (transient ischemic attack) (~2009) Cancer of prostate (03/22/11) Unspecified essential hypertension (03/22/11) History of colon polyps (03/22/11) Other and unspecified hyperlipidemia (03/22/11) Low back pain (03/10/15) Inguinal hernia without obstruction or gangrene Surgical History (Updated 01/15/24 @ 10:22 by Gege Walker MD) 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 Other Cancer Social History (Reviewed 12/22/23 @ 16:18 by SHERITA Arevalo marital status: number of children: 3 household members: spouse Smoking Status: Never smoker alcohol intake: current caffeine: Yes Discharge Assessment & Plan Assessment and Plan Assessment: Status post right TKA Plan of Treatment: Discharge home pending PT approval. Patient is ordered hydroxyzine 25 mg q.6 hours PRN for spasms and cramps in the lower extremities. We will prescribe same prescription upon discharge. Patient will restart his aspirin 325 mg daily for DVT prevention. Baseline multimodal pain control with acetaminophen and meloxicam. Patient has been prescribed oxycodone and meloxicam instructed in the use at preoperative visit. Ambulate with assistive devices. Initiate postoperative physical therapy in 5-10 days. Follow up in clinic in 2 weeks for wound check. Addendum Patient had difficulty with PT with mobilizing and stair climbing. Orthostatic hypotension observed with lightheadedness during PT visits. Patient did not feel comfortable being discharged home. EKG perormed: NSR Repeat H&H: improving from this mornings draw. Continue to observe due to patient recent cardiac history of sudden elevation of blood pressure. Cancel discharge orders for today. Notified Dr. Spears, he agrees with plan. Discharge Plan Discharge Plan Patient Disposition: Home Provider Discharge Comment: DC pending PT approval Discharge orders & Medications Discharge Orders: Discharge (Order); Ordered 01/15/24 Ordered By: Gege Walker Prescriptions: New hydroxyzine HCl 25 mg Tablet 25 mg PO Q6H PRN (Reason: Spams/cramps) Qty: 20 0RF Continued aspirin 325 mg tablet 325 mg PO DAILY multivitamin Tablet 1 tab PO DAILY Qty: 90 0RF ascorbate calcium (vitamin C) 500 mg tablet 500 mg PO DAILY Qty: 90 0RF calcium carbonate-vitamin D3 [Calcium 500 + D] 500 mg-10 mcg (400 unit) Tablet 1 tab PO DAILY Rx Instructions: 400mg of Calcium, 12.5 mcg of Vit D psyllium Powder 2 tsp PO DAILY Rx Instructions: mix into at least 4 oz water or juice before administering Discontinued ibuprofen 200 mg Tablet 400 mg PO DAILY PRN (Reason: Pain) Follow up/Referrals: Jeffery Hermosillo MD [Primary Care Provider] - Diet/Activity/Treatments Diet: Diet as Tolerated Activity: Weightbearing as tolerated --use hinged knee brace locked in extension for ambulation until quadriceps function returns indicated by ability to lift leg straight off the bed. Brace may be unlocked or off when not ambulating--may shower with Aquacel dressing in place. Cold/Heat Therapy: Ice to knee as needed for pain.--try for 20 minutes an hour while awake. Skin/Wound/Dressing Care Report to your healthcare provider any signs of infection, such as:: chills, fever, night sweats, unusual drainage and unusual redness Dressing: May shower. Leave dressing in place until follow up in office. No bathing or otherwise soaking incision. Call the office if the dressing becomes saturated inside. Visit Report/Discharge Packet Instructions: How to Use an Incentive Spirometer, DI for Knee Replacement, DI for Constipation, How to Prevent Falls, How to Apply an Hugo Wrap, DI for Prescription Opioid Use Stand Alone Forms: Patient Portal/API, Stroke Signs & Symptoms, Surgery Discharge Discharge Data Primary Care Provider: Jeffery Hermosillo Attending Provider: Bebo Spears VTE Deep Vein Thrombosis/Pulmonary Embolism Present on Admission: No
--- NOTE | 2024-01-15 11:40 | PT.IPTN ---
Current Diagnoses Unilateral primary osteoarthritis, right knee (01/13/24) Presence of right artificial knee joint (01/13/24) Surgery Performed Operation Date: 01/13/24 10:15 Actual Procedures p Total Knee Arthroplasty(Right) - Bebo Spears MD Physical Therapy Treatment Note M2 PT-IP Current Condition Start: 01/14/24 12:22 Freq: NEEDED Status: Active Protocol: Document 01/14/24 09:30 AB (Rec: 01/14/24 12:37 AB [id number]) Physical Therapy Current Condition Current Condition Evaluation Date 01/14/24 Treatment Diagnosis s/p R TKA; difficulty in walking Onset Date 01/13/24 M3 PT-IP Subjective Start: 01/14/24 12:22 Freq: NEEDED Status: Active Protocol: Document 01/15/24 10:45 MB (Rec: 01/15/24 11:39 MB [id number]) Subjective Physical Therapy Visit Type Type Treatment Note Visit Start Time 10:45 Visit Stop Time 11:23 Number of [employer]CH[employer]TE[employer] Visits 0 Physical Therapy Visit Comments Patient Comments Pt is agreeable to PT, is unsure about knee brace delivered by orthopedic surgeon and states it is uncomfortable. Therapy Pain Assessment Pain When Pain Assessed During Mobility Pain Present Pain Present Pain Reported Location Right Knee Scale Used Did not rate M4 PT-IP Mobility and Gait Start: 01/14/24 12:22 Freq: NEEDED Status: Active Protocol: Document 01/15/24 10:45 MB (Rec: 01/15/24 11:39 MB [id number]) PT-Bed Mobility Assessment Supine to Sit Supine to Sit Standby Assistance Scooting Scooting to Edge of Bed Standby Assistance PT-Transfer Assessment Sit to and From Stand Sit to and from Stand Contact Guard Assistance,Use of Upper Extremities Equipment Transfer Assistive Device Gait Belt,Front Wheeled Walker Orthotic/Prosthetic Devices or Brace: Yes Transfers Transfer Destination Bed Transfer Technique Ambulation Transfer Ability Level of Assist Contact Guard Assistance,Use of Upper Extremities Comments Mobility Comments Cues to push up from the bed. Pt con't with orthostasis and is not particularly symptomatic today. BP and HR in LUE: supine 159/95, 82; standing 134/79, 87; standing 1' 138/84, 86; after gait 143/ 90, 91. Gait Assessment Gait Gait Assistance Required: Standby Assistance,1 Person Assist Distance (Feet) 100 Able to Maintain Weight Bearing Status Yes During Gait Assistive Devices Assistive Device Gait Belt,Front Wheeled Walker Orthotic/Prosthetic Devices or Brace: Yes Gait Deviations General Gait Pattern Antalgic,Decreased Stride Length,Decreased Feet Clearance,Flexed Trunk,Step-to Gait Factors Limiting Gait Function Factors Limiting Gait Function Limited Range of Motion,Pain Comments Gait Comments Brace limits heel strike, knee flexion and step-through and he reports it is uncomfortable . He tends to step in front of walker. 100'x2. Without brace , knee does not functionally buckle and he can gait train 40' with better step pattern, similar assistance. Stair Climbing Assessment Evaluation Level of Assist On Stairs Contact Guard Assistance,1 Person Assistance Devices Stair Climbing Assistive Devices Left Railing Technique/Endurance Stair Climbing Direction Ascend and Descend Stair Climbing Technique Step to Step Number of Steps Climbed 3 Stair Climbing Set # Repetitions (reps) 1 Comments Stair Climbing Comments Pt faces left rail slightly with both hands on left rail and ascend first with left foot and descend first with right foot PT-Balance Assessment Sitting Balance and Reactions Static Sitting Balance Ability Good Dynamic Sitting Balance Ability Good Standing Balance and Reactions Static Standing Balance Ability Good Dynamic Standing Balance Ability Fair Device Used RW M5 PT-IP Objective Assessments Start: 01/14/24 12:22 Freq: NEEDED Status: Active Protocol: Document 01/15/24 10:45 MB (Rec: 01/15/24 11:39 MB [id number]) Gross Range of Motion Lower Extremity ROM Impairments R knee range sitting EOB: actively 30-70 deg, pt is able to flex and extend in limited range M6 PT-IP Treatment Start: 01/14/24 12:22 Freq: NEEDED Status: Active Protocol: Document 01/15/24 10:45 MB (Rec: 01/15/24 11:39 MB [id number]) Physical Therapy Treatment Other Treatments Other Treatment Performed Reviewed APs, QS, HS, use of gait belt to help right knee ROM, proper gait and stair technique, benefits of BP cuff at home and checking BP, monitor fluid intake (increase ) and symptoms, discussed the brace: pt does not like and it is uncomfortable M7 PT-IP Assessment and Plan Start: 01/14/24 12:22 Freq: NEEDED Status: Active Protocol: Document 01/15/24 10:45 MB (Rec: 01/15/24 11:39 MB [id number]) PT Summary Assessment and Plan Potential Rehabilitation Potential Fair Status of Condition at Evaluation Evolving Summary Impairments Pain,ROM,Strength,Balance,Bed Mobility,Transfers,Gait, Activity Tolerance Progress Towards Goals Progressing Toward Goals Assessment Summary Pt progresses towards goals. Pt con't with orthostasis and he is not symptomatic today. Gait today with new brace delivered by ortho is much worse than gait without and it is uncomfortable for pt. The brace will limit normal reciprocal gait and functional knee ROM post TKR. No further acute PT needs. Will d/c PT. Frequency of Treatment Frequency Of Treatment Discharge Weight Bearing Status Weight Bearing Status Weight Bear as Tolerated Allowed Weight Bearing Amount (enter % RLE WBAT or #) (%) Recommendations To Nursing Amount of Assist Needed 1 Person Assist Discharge Recommendations PT Discharge Recommendations Home with Assistance, Outpatient PT Transportation Needs at Discharge Private Vehicle
--- NOTE | 2024-01-15 13:13 | PC.NURSE ---
Day shift: Discharge instructions gone over with patient and patient's spouse by KATERIN Wesley. No tele, no PIV access. All belongings with patient. PCT Gillian escorted patient to exit via wheelchair.
--- NOTE | 2024-01-15 14:05 | CM.DPNOTE ---
DC Note Discharge home w/family, outpatient PT. Cleared by therapy for this plan. No needs from this CM team identified. DARCY
== END 2024-01-15 13:15 | disposition home or self-care (01) ==
LOC: OR 08:57 → AC 08:57
PROVIDERS: Physician Assistant; Family Provider Family Medicine; PCP Internal Medicine; Referring Provider Orthopaedic Surgery Adult Reconstructive Orthopaedic Surgery; Visit Provider Orthopaedic Surgery Adult Reconstructive Orthopaedic Surgery
PROC: 0SRC0JZ Replacement of Right Knee Joint with Synthetic Substitute, Open Approach (ICD-10-PCS; CPT 27447; principal; 2024-01-13 10:15)
DX: M17.11 Unilateral primary osteoarthritis, right knee (principal); Z96.652 Presence of left artificial knee joint; M25.761 Osteophyte, right knee
CPT/HCPCS: 27447; 36415; 73560; 85014; 85018; 93005; 93010; 97116; 97162; 97530; 97535; C1776; A9270; J0690; J2405; J2704